=== PATIENT | female | born 1960 | race Caucasian/White ===

== ENCOUNTER 2016-11-10 18:14 | Inpatient (IN) ==
--- NOTE | 2016-11-10 18:48 | Emergency Department Report ---
Skin/Abscess/FB HPI - General Chief complaint: Skin/Abscess/Foreign Body Stated complaint: cellulitis Time Seen by Provider: 11/10/16 18:39 Source: patient Mode of arrival: ambulatory Limitations: no limitations - History of Present Illness HPI narrative: She had an episode of cellulitis on the left calf. Has history of cellulitis in this region. Was put on Doxycycline on 11/04/16 and this did clear up well. Over the weekend noted that the cellulitis was on the left thigh. Did see her PCP yesterday in clinic and was started on Bactrim DS and stopped the Doxycycline. She has had 3 doses so far. Today she followed up with her PCP and they felt that the redness had spread quite a bit. Was sent here to ER for evaluation and admission. Has not had a fever at all at home. complaint: other (cellulitis) Onset (ago): day(s) (4 days ago) Tetanus up to date: no Location: LLE (left thigh) Severity: moderate Consistency: constant Relieving factors: none Exacerbating factors: none Context: none Associated symptoms: denies other symptoms Treatments prior to arrival: none - Related Data Home Medications Medication Instructions Recorded Confirmed Atorvastatin Calcium 40 mg PO HS #0 tab 09/26/15 11/10/16 Hydrocodone/Acetaminophen 1 - 2 tab PO Q6H PRN #90 09/26/15 11/10/16 [Hydrocodon-Acetaminophen 5-325] Levothyroxine Sodium 112 mcg PO ACB #90 09/26/15 11/10/16 Losartan/Hydrochlorothiazide 1 tab PO DAILY #90 09/26/15 11/10/16 [Losartan-Hctz 100-25 mg Tab] Multivit-Minerals/Folic/Ginkgo 1 tab PO DAILY #1 09/26/15 11/10/16 [One Daily For Women 50+ Adv Tb] Omeprazole 20 mg PO BID PRN #120 09/26/15 11/10/16 Potassium Chloride 20 mg PO BID #90 09/26/15 11/10/16 Sitagliptin Phosphate [Januvia] 100 mg PO HS #90 09/26/15 11/10/16 Venlafaxine HCl [Venlafaxine HCl 150 mg PO DAILY #90 09/26/15 11/10/16 ER] Aspirin/Acetaminophen/Caffeine 1 tab PO Q6H PRN 11/10/16 11/10/16 [Headache Relief Tablet] Clobetasol 0.05% Cream [TEMOVATE 1 applic TOP BID 11/10/16 11/10/16 Cream] Melatonin/Pyridoxine HCl (B6) 5 mg PO HS 11/10/16 11/10/16 [Melatonin 5 mg Tablet] Naproxen Sodium [Aleve] 220 mg PO BID PRN 11/10/16 11/10/16 Ondansetron HCl [Zofran] 4 mg PO Q6H PRN 11/10/16 11/10/16 Pregabalin Cap [Lyrica] 150 mg PO DAILY 11/10/16 11/10/16 Sulfamethox/Tmp Ds *Ed Prepack 1 tab PO Q12H 11/10/16 11/10/16 [Bactrim Ds 800/160 *Ed Prepack*] Vit A/C/E AC/Znox/Cupric Oxide 1 tab PO DAILY 11/10/16 11/10/16 [Eye Vitamin-Minerals Tablet] Allergies Allergy/AdvReac Type Severity Reaction Status Date / Time metformin Allergy Unknown ITCHING Verified 11/10/16 19:15 Penicillins Allergy Unknown HIVES Verified 11/10/16 19:15 Review of Systems Constitutional: Denies: fever, chills, weakness Cardiovascular: Denies: chest pain, palpitations, dyspnea on exertion Respiratory: Denies: cough, dyspnea, wheezes Gastrointestinal: Denies: abdominal pain, nausea, vomiting, diarrhea, constipation Integumentary: Reports: other (erythema and induration on the left lateral thigh ) Neurological: Denies: headache, weakness, numbness, paresthesias PFS Patient Stated Medical History Peripheral Neuropathy Yes Hypertension Yes Sleep Apnea Yes Diabetes Mellitus Type 2 Yes Osteoarthritis Yes Cellulitis Yes Depression Yes Polycystic Ovarian Syndrome Yes Lower extremity cellulitis Surgical History: Hysterectomy. Tonsillectomy Family History: Negative - Social History Smoking status: Never smoker Substance use type: does not use Alcohol intake frequency: does not drink Physical Exam - Limitations Limitations: no limitations - General General appearance: alert, in no apparent distress - Normal Exams: Neck:: Full range of motion, without adenopathy, JVD, bruits or thyromegaly Chest/Respirations:: Clear all galdamez, with good airflow, and symmetry bilaterally Cardiovascular:: Regular rate and rhythm, without murmur or gallop, Pulses 2+ all extremities, capillary refill, <2 seconds all extremities Abdomen:: Bowel sounds positive, soft, non-tender, non-distended, no hepatosplenomegaly, masses or bruits noted Lymphatic:: No lymphadenopathy, or lymphedema noted Musculoskeletal:: No tenderness, or deformity noted, good range of motion, all extremities Neurological:: Patient is alert, and oriented Psychiatric:: Patient exhibits, appropriate attention, emotion and affect - Skin Skin exam: Present: other (There is an area on the left lateral thigh that is erythematous and indurated. The erythema extends up the left hip and across the left buttocks) Course Vital Signs Temperature 98.1 F 11/10/16 18:32 Pulse Rate 75 11/10/16 18:32 Respiratory Rate 20 11/10/16 18:32 Blood Pressure 141/67 H 11/10/16 18:32 Pulse Oximetry 98 11/10/16 18:32 Temperature 98.2 F 11/10/16 21:36 Pulse Rate 75 11/10/16 22:22 Respiratory Rate 20 11/10/16 22:22 Blood Pressure 142/82 H 11/10/16 21:45 Pulse Oximetry 98 11/10/16 22:22 Skin/Abscess/Foreign Body - MDM Narrative Medical decision making narrative: Labs today are normal. Given that the cellulitis is spreading on the PO medication will admit for IV antibiotics. Did discuss findings with Dr Amezquita who will admit at this time. - Differential Diagnosis Likely: abscess of skin or subcutaneous tissue, allergic reaction to drug, cellulitis, contact dermatitis - Lab Data Attestation: I reviewed the patient's lab results. Result diagrams: 11/10/16 19:01 11/10/16 19:01 Lab Results 11/10/16 11/10/16 Range/Units 19:01 19:01 WBC 9.2 (4.5-11.0) T/MM3 RBC 4.30 (4.00-5.20) M/MM3 Hgb 11.2 L (12-16) GM/DL Hct 34.4 L (36-46) % MCV 80.0 (80-100) UM3 MCH 26.0 (26-34) UUG MCHC 32.6 (31-37) GM/DL RDW Std Deviation 44.1 (36.9-50.2) FL Plt Count 240 (130-400) T/MM3 MPV 11.1 (9.4-12.4) UM3 Immature Gran % (Auto) 2.3 H (0.0-0.5) % Neut % (Auto) 73.2 H (33-66) % Lymph % (Auto) 14.9 L (23-45) % Wilkinson % (Auto) 6.9 (0-9.0) % Eos % (Auto) 2.3 (0-4) % Baso % (Auto) 0.4 (0-2) % Neut # 6.7 (1.8-7.7) T/MM3 Lymph # 1.4 (1-4.8) T/MM3 Wilkinson # 0.6 (0-0.8) T/MM3 Eos # 0.2 (0-0.5) T/MM3 Baso # 0.0 (0-0.2) T/MM3 Abs Immat Gran (auto) 0.21 H (0.00-0.03) T/MM3 Turbidity < 20 (0-20) Sodium 143 (134-144) MEQ/L Potassium 3.7 (3.6-5) MEQ/L Chloride 100 (98-107) MEQ/L Carbon Dioxide 28 (22-30) MEQ/L Anion Gap 15 (5-15) MEQ/L BUN 13.0 (7-17) MG/DL Creatinine 1.2 (0.7-1.2) MG/DL GFR Calculation 46 BUN/Creatinine Ratio 11 (6-26) RATIO Glucose 214 H (65-110) MG/DL Calculated Osmolality 281 H (261-280) MOSM/KG Calcium 8.8 (8.4-10.2) MG/DL Icterus Index < 2 (0-7) Specimen Hemolysis < 15 (0-25) Disposition Clinical Impression: Cellulitis Qualifiers: Site of cellulitis: extremity Site of cellulitis of extremity: lower extremity Laterality: left Qualified Code(s): L03.116 - Cellulitis of left lower limb Disposition: To [facility] Acute Care Condition: Stable Time of Disposition: 20:14 - Seen By: midlevel
[2016-11-10] MEDS ORDERED: KETOROLAC 15 MG/ML INJECTION IVP PRN (21:37)
[2016-11-10] MEDS ORDERED: GLUCOSE ORAL GEL 40% 37.5gm PO PRN (21:41)
[2016-11-10] MEDS ORDERED: ONDANSETRON 4 MG/2 ML INJECTION IVP PRN (21:48)
[2016-11-10] MEDS ORDERED: OXYCODONE/APAP 5 MG/325 MG TABLET PO PRN (21:48)
[2016-11-10] MEDS ORDERED: NS FLUSH BAG 500ml IV PRN (23:20)
[2016-11-10] MEDS ORDERED: NAPROXEN 220 MG TABLET PO PRN (23:22)
[2016-11-10] MEDS: LEVOFLOXACIN PREMIX 750 MG/150 ML BAG IV SCH (23:22)
--- NOTE | 2016-11-10 23:31 | History & Physical Report ---
History of Present Illness Date: 11/10/16 Chief complaint: leg redness and pain HPI: Please note that the patient was seen via telemedicine with nursing assistance on 11/10/2016. Ms. German is a pleasant 55yo woman with h/o DM2 on januvia, HTN, dyslpidemia, hyst, T&A, MDD, HARDEEP, and class 3 obesity BMI over60 with 1 week of leg redness at lower thigh which has worsened. Doxy started 11/04 and then PCP change to bactrim yesterday. Still progressive erythema and warmth throughout thight now with no drainage. positive fevers and chills with nausea and emesis. Review of Systems All systems: reviewed and no additional remarkable complaints except as stated Review of systems: 10+ neg aside from in HPI with no syncope, CP, abd pain, anorexia or sob. - Integumentary/Breasts Integumentary: Present: other (erythema and induration on the left lateral thigh ) PFSH Patient Stated Medical History Migraine Yes Peripheral Neuropathy Yes Hypertension Yes Sleep Apnea Yes Diabetes Mellitus Type 2 Yes Osteoarthritis Yes Cellulitis Yes: THIS ADMITION Depression Yes Polycystic Ovarian Syndrome Yes Surgical History: Hysterectomy. Tonsillectomy Family History: father of a CVA at 39, mother aliver with HTN - Social History Smoking status: Never smoker Medications Home Medications Medication Instructions Recorded Confirmed Type Atorvastatin Calcium 40 mg PO HS #0 tab 09/26/15 11/10/16 History Hydrocodone/Acetaminophen 1 - 2 tab PO Q6H PRN #90 09/26/15 11/10/16 History [Hydrocodon-Acetaminophen 5-325] Levothyroxine Sodium 112 mcg PO ACB #90 09/26/15 11/10/16 History Losartan/Hydrochlorothiazide 1 tab PO DAILY #90 09/26/15 11/10/16 History [Losartan-Hctz 100-25 mg Tab] Multivit-Minerals/Folic/Ginkgo 1 tab PO DAILY #1 09/26/15 11/10/16 History [One Daily For Women 50+ Adv Tb] Omeprazole 20 mg PO BID PRN #120 09/26/15 11/10/16 History Potassium Chloride 20 mg PO BID #90 09/26/15 11/10/16 History Sitagliptin Phosphate [Januvia] 100 mg PO HS #90 09/26/15 11/10/16 History Venlafaxine HCl [Venlafaxine HCl 150 mg PO DAILY #90 09/26/15 11/10/16 History ER] Aspirin/Acetaminophen/Caffeine 1 tab PO Q6H PRN 11/10/16 11/10/16 History [Headache Relief Tablet] Clobetasol 0.05% Cream [TEMOVATE 1 applic TOP BID 11/10/16 11/10/16 History Cream] Melatonin/Pyridoxine HCl (B6) 5 mg PO HS 11/10/16 11/10/16 History [Melatonin 5 mg Tablet] Naproxen Sodium [Aleve] 220 mg PO BID PRN 11/10/16 11/10/16 History Ondansetron HCl [Zofran] 4 mg PO Q6H PRN 11/10/16 11/10/16 History Pregabalin Cap [Lyrica] 150 mg PO DAILY 11/10/16 11/10/16 History Sulfamethox/Tmp Ds *Ed Prepack 1 tab PO Q12H 11/10/16 11/10/16 History [Bactrim Ds 800/160 *Ed Prepack*] Vit A/C/E AC/Znox/Cupric Oxide 1 tab PO DAILY 11/10/16 11/10/16 History [Eye Vitamin-Minerals Tablet] Allergies Allergy/AdvReac Type Severity Reaction Status Date / Time metformin Allergy Unknown ITCHING Verified 11/10/16 19:15 Penicillins Allergy Unknown HIVES Verified 11/10/16 19:15 Exam Vital Signs: Temp Pulse Resp BP Pulse Ox 98.2 F 75 20 142/82 H 98 11/10/16 21:36 11/10/16 22:22 11/10/16 22:22 11/10/16 21:45 11/10/16 22:22 Telemetry Rhythm: Sinus Rhythm Height: 1.7 m Weight: 188.2 kg Body Mass Index: 65.0 - Constitutional Present: no acute distress, morbidly obese - Routine HEENT Exam Head: Present: normocephalic, atraumatic Eye: Present: EOMI - Routine Neck Exam Present: full ROM - Routine Respiratory Exam Present: CTA bilaterally. Absent: accessory muscle use, respiratory distress - Routine Cardiovascular Exam Present: RRR, S1, S2 - Routine Abdominal Exam Present: soft, normoactive bowel sounds, non tender - Routine Extremities Exam Present: edema - Routine Skin Exam Comments: L thigh with bright erythema of thigh more lateral and too buttock spanning over 30cm with to knee, no ulceration Results - Labs CBC & Chem 7: 11/10/16 19:01 11/10/16 19:01 Assessment and Plan (1) Cellulitis Current visit: Yes Status: Acute 11/10/16 23:34 Vanco and levaquin based on allergies, repeat labs, monitor with normal naproxen (2) DM2 (diabetes mellitus, type 2) Current visit: Yes Status: Acute 11/10/16 23:34 SSI, CBGs, check A1C and hold januvia (3) HTN (hypertension) Current visit: Yes Status: Acute 11/10/16 23:35 same lisin/hctz (4) Dyslipidemia Current visit: Yes Status: Acute 11/10/16 23:35 statin (5) Obesity Current visit: Yes Status: Acute (6) HARDEEP (obstructive sleep apnea) Current visit: Yes Status: Acute 11/10/16 23:35 home CPAp DVT Prophylaxis: [place] Hospital Course Summary Disclaimer: The visit summary below is not to be considered part of the above Progress Note.
[2016-11-11] MEDS: ATORVASTATIN 40 MG TABLET PO SCH ×2 (00:23→21:48)
[2016-11-11] MEDS: HYDROCODONE/APAP 5mg/325mg TABLET PO PRN ×3 (02:57→21:50)
[2016-11-11] MEDS: LEVOTHYROXINE 112 MCG TABLET PO SCH (06:29)
[2016-11-11] MEDS: INSULIN ASPART 100unit/ml INJECTION SQ PRN ×4 (07:25→21:47)
[2016-11-11] MEDS: NAPROXEN 220 MG TABLET PO SCH ×2 (08:34→17:25)
[2016-11-11] MEDS: VENLAFAXINE 150 MG PO SCH (08:36)
[2016-11-11] MEDS: PREGABALIN 150 MG CAPSULE PO SCH (08:36)
[2016-11-11] MEDS: CLOBETASOL 0.05% CREAM 15gm TOP SCH ×2 (08:36→21:49)
[2016-11-11] MEDS ORDERED: ENOXAPARIN 40 MG/0.4 ML INJECTION SQ SCH (09:00)
--- NOTE | 2016-11-11 09:59 | Pharmacy Consult-Antibiotics ---
Pharmacy Consult-Vancomycin - Laboratory Information WBC 7.7 T/MM3 (4.5-11.0) 11/11/16 04:29 BUN 12.0 MG/DL (7-17) 11/11/16 04:29 Creatinine 1.2 MG/DL (0.7-1.2) 11/11/16 04:29 Kely is a 55 yo female who presented with erythema and warmth throughout right thigh (no ulceration). Patient report positive fevers and chills. The physician admitted her for cellulitis. Will dose for a trough of 15-20 mcg/mL with an estimated trough of 15.5 mcg/mL. A dose of Vancomycin 2,000 mg iv was given 11/10 @ 2100. I will start Vancomycin iv every 24 hours @1200 today (11/11 ). I will ordered a Vancomycin trough to be drawn before the fourth dose on @ 1100, and the pharmacy will adjust the Vancomycin based on trough and/or the renal function. Thank you for the Vancomycin Protocol. Segundo Ledezma RP
--- NOTE | 2016-11-11 12:35 | Progress Note ---
Subjective: Pt reports doing better this am. Reports her pain and rash seems to be improved this am. Denies any f/c, cp or sob. Objective Vital signs: Temp Pulse Resp BP Pulse Ox 98.0 F 76 20 154/105 H 98 11/11/16 07:28 11/11/16 11:14 11/11/16 07:28 11/11/16 11:14 11/11/16 07:28 Weight: 187.5 kg - Constitutional Present: no acute distress, morbidly obese - Routine HEENT Exam Head: Present: normocephalic Eye: Present: EOMI ENT: Present: mucous membranes moist - Routine Respiratory Exam Present: CTA bilaterally. Absent: wheezes - Routine Cardiovascular Exam Present: RRR, no murmur - Routine Abdominal Exam Present: soft, non distended, non tender - Routine Extremities Exam Present: edema. Absent: cyanosis, clubbing - Routine Skin Exam Present: intact, dry, warm, rash Comments: left buttocks has erythematous rash extended into thigh, no discharge - Routine Neurological Exam Present: alert, oriented X3 Results - Labs CBC & Chem 7: 11/11/16 04:29 11/11/16 04:29 Assessment and Plan (1) Cellulitis Current visit: Yes Status: Acute 11/10/16 23:34 Vanco and levaquin based on allergies, repeat labs, monitor with normal naproxen (2) DM2 (diabetes mellitus, type 2) Current visit: Yes Status: Acute 11/10/16 23:34 SSI, CBGs, check A1C and hold januvia (3) HTN (hypertension) Current visit: Yes Status: Acute 11/10/16 23:35 same lisin/hctz (4) Dyslipidemia Current visit: Yes Status: Acute 11/10/16 23:35 statin (5) Obesity Current visit: Yes Status: Acute (6) HARDEEP (obstructive sleep apnea) Current visit: Yes Status: Acute 11/10/16 23:35 home CPAp Assessment and Plan: Cellulitis -Failed outpt therapy with doxy and bactrim -Seems to have improved on Vanc + Levaquin, will cont. -On levaquin d/t allergies per night team -Blood cx's NGTD, order Crp/Esr, procal -Will jose angel outline of rash and follow -Likely increased risk d/t venous insufficiency edema DM -A1c 8.6 -Cont. home januvia, add SSI, achs checks HTN -Cont. home losartan/hctz Ppx -DVT-lovenox Sepsis Assessment - Evaluation Sepsis screening result: No Definite Risk Hospital Course Summary Disclaimer: The visit summary below is not to be considered part of the above Progress Note. Hospital Course: 11/11/16 12:35 Pt admitted for cellulitis and failed outpt PO therapy. Pt doing well on current abx therapy, will cont. and monitor.
[2016-11-11] MEDS: SALINE FLUSH 10ml SYRINGE IVF PRN ×2 (13:26→16:31)
[2016-11-11] MEDS: LEVOFLOXACIN PREMIX 750 MG/150 ML BAG IV SCH (21:46)
[2016-11-11] MEDS: ENOXAPARIN 40 MG/0.4 ML INJECTION SQ SCH (21:47)
[2016-11-11] MEDS: MELATONIN 5 MG TABLET PO SCH (21:49)
[2016-11-11] MEDS: SITAGLIPTIN 100 MG TABLET PO SCH (21:59)
[2016-11-12] MEDS: LEVOTHYROXINE 112 MCG TABLET PO SCH (06:22)
[2016-11-12] MEDS: NAPROXEN 220 MG TABLET PO SCH ×2 (09:08→19:19)
[2016-11-12] MEDS: CLOBETASOL 0.05% CREAM 15gm TOP SCH ×2 (09:09→21:04)
[2016-11-12] MEDS: PREGABALIN 150 MG CAPSULE PO SCH (09:09)
[2016-11-12] MEDS: VENLAFAXINE 150 MG PO SCH (09:09)
[2016-11-12] MEDS ORDERED: MAGNESIUM SULFATE IV ONE (10:34)
[2016-11-12] MEDS ORDERED: NS IV ONE (10:34)
[2016-11-12] MEDS: SALINE FLUSH 10ml SYRINGE IVF PRN (11:39)
[2016-11-12] MEDS: HYDROCODONE/APAP 5mg/325mg TABLET PO PRN ×2 (11:53→21:05)
[2016-11-12] MEDS: MAGNESIUM SULFATE IV SCH ×2 (11:54→15:39)
[2016-11-12] MEDS: NS IV SCH ×2 (11:54→15:39)
[2016-11-12] MEDS: INSULIN ASPART 100unit/ml INJECTION SQ PRN ×3 (11:59→21:05)
--- NOTE | 2016-11-12 12:48 | Progress Note ---
Subjective: Pt reports she feels better and feels like rash is improving, denies any f/c, n/ v/d, cp or sob. Objective Vital signs: Temp Pulse Resp BP Pulse Ox 96.3 F L 68 18 125/53 98 11/12/16 07:00 11/12/16 07:00 11/12/16 07:00 11/12/16 07:00 11/12/16 07:00 Weight: 188.1 kg - Constitutional Present: no acute distress, morbidly obese - Routine HEENT Exam Head: Present: normocephalic, atraumatic Eye: Present: EOMI - Routine Respiratory Exam Present: CTA bilaterally. Absent: wheezes - Routine Cardiovascular Exam Present: RRR, no murmur - Routine Abdominal Exam Present: soft, non tender - Routine Extremities Exam Present: edema. Absent: cyanosis, clubbing - Routine Skin Exam Present: intact, dry, rash - Routine Neurological Exam Present: oriented X3 Results - Labs CBC & Chem 7: 11/12/16 04:48 11/12/16 04:48 Assessment and Plan (1) Cellulitis Current visit: Yes Status: Acute 11/10/16 23:34 Vanco and levaquin based on allergies, repeat labs, monitor with normal naproxen (2) DM2 (diabetes mellitus, type 2) Current visit: Yes Status: Acute 11/10/16 23:34 SSI, CBGs, check A1C and hold januvia (3) HTN (hypertension) Current visit: Yes Status: Acute 11/10/16 23:35 same lisin/hctz (4) Dyslipidemia Current visit: Yes Status: Acute 11/10/16 23:35 statin (5) Obesity Current visit: Yes Status: Acute (6) HARDEEP (obstructive sleep apnea) Current visit: Yes Status: Acute 11/10/16 23:35 home CPAp Assessment and Plan: Cellulitis of left leg -Failed outpt therapy with doxy and bactrim -Seems to have improved on Vanc D2 + Levaquin D2 will cont. -On levaquin d/t allergies per night team -Blood cx's NGTD, CRP 57, Procal negative -Rash is improving per the marked border around it -Likely increased risk d/t venous insufficiency edema -Will cont. IV abx today and plan for PO tomorrow -Going to be difficult to switch to PO from vanc, pt already failed bactrim and doxy, maybe clinda? vs. finishing vanc therapy DM -A1c 8.6 -Cont. home januvia, add SSI, achs checks HTN -Cont. home losartan/hctz Ppx -DVT-lovenox Sepsis Assessment - Evaluation Sepsis screening result: No Definite Risk Hospital Course Summary Disclaimer: The visit summary below is not to be considered part of the above Progress Note. Hospital Course: 11/11/16 12:35 Pt admitted for cellulitis and failed outpt PO therapy. Pt doing well on current abx therapy, will cont. and monitor. 11/12/16 12:48 Pt is improving on current abx, will cont. IV abx today with plan for switch to PO tomorrow and possibly discharge.
--- NOTE | 2016-11-12 14:05 | Pharmacy Consult-Antibiotics ---
Pharmacy Consult-Vancomycin - Laboratory Information WBC 6.0 T/MM3 (4.5-11.0) 11/12/16 04:48 BUN 14.0 MG/DL (7-17) 11/12/16 04:48 Creatinine 1.2 MG/DL (0.7-1.2) 11/12/16 04:48 Procalcitonin < 0.05 NG/ML 11/11/16 14:16 - Consult Information Vancomycin increased to 2 gm IV Q12h based on patient weight. Vancomycin trough ordered and adjustments will be made as needed. Thank you for the Vancomycin protocol, Dawna Medina [facility]
[2016-11-12] MEDS: LEVOFLOXACIN PREMIX 750 MG/150 ML BAG IV SCH (21:11)
[2016-11-12] MEDS: MELATONIN 5 MG TABLET PO SCH (21:18)
[2016-11-12] MEDS: SITAGLIPTIN 100 MG TABLET PO SCH (21:19)
[2016-11-12] MEDS: ATORVASTATIN 40 MG TABLET PO SCH (21:19)
[2016-11-12] MEDS: ENOXAPARIN 40 MG/0.4 ML INJECTION SQ SCH (21:19)
[2016-11-13] MEDS: MAGNESIUM SULFATE IV SCH (01:21)
[2016-11-13] MEDS: NS IV SCH (01:21)
[2016-11-13] MEDS: SALINE FLUSH 10ml SYRINGE IVF PRN ×4 (01:22→21:00)
[2016-11-13] MEDS: INSULIN ASPART 100unit/ml INJECTION SQ PRN ×4 (06:04→20:59)
[2016-11-13] MEDS: LEVOTHYROXINE 112 MCG TABLET PO SCH (06:05)
[2016-11-13] MEDS: NAPROXEN 220 MG TABLET PO SCH ×2 (08:55→17:22)
[2016-11-13] MEDS: VENLAFAXINE 150 MG PO SCH (08:55)
[2016-11-13] MEDS: PREGABALIN 150 MG CAPSULE PO SCH (08:56)
[2016-11-13] MEDS: CLOBETASOL 0.05% CREAM 15gm TOP SCH (08:56)
--- NOTE | 2016-11-13 17:49 | Progress Note ---
Subjective: Mrs. German reports that she feels fine. She denies pain in her left thigh and had no fever overnight. She had minor nausea on admission but it's resolved and her appetite is good. Bowels are working without difficulty and she is voiding regularly without dysuria. She denied dyspnea or lightheadedness. Objective Vital signs: Temp Pulse Resp BP Pulse Ox 96.8 F 74 18 133/61 96 11/13/16 15:11 11/13/16 15:11 11/13/16 15:11 11/13/16 15:11 11/13/16 15:11 EXAM General-morbidly obese, NAD, alert HEENT-conjunctiva clear, sclera anicteric, oropharynx clear Lungs-respirations nonlabored, breath sounds clear although diminished throughout Cardiac-regular rhythm, S1-S2 Abd-soft, nontender, bowel sounds present Ext-trace edema bilateral ankles Skin-residual faint erythema in the left lateral thigh in the area previously outlined although beginning to resolve at the periphery, there is central induration. The area is not tender or hot on palpation. Scattered areas are flaking slightly but not ulcerated or desquamating. Neuro-moving all extremities Psych-calm, pleasant, cooperative - Weight: 188.6 kg Results - Labs CBC & Chem 7: 11/12/16 04:48 11/13/16 05:04 Labs: Magnesium 1.6 Blood cultures 2 negative after 2 days Assessment and Plan (1) Cellulitis Current visit: Yes Status: Acute (2) DM2 (diabetes mellitus, type 2) Current visit: Yes Status: Acute (3) HTN (hypertension) Current visit: Yes Status: Acute (4) Dyslipidemia Current visit: Yes Status: Acute 11/10/16 23:35 statin (5) HARDEEP (obstructive sleep apnea) Current visit: Yes Status: Chronic 11/10/16 23:35 home CPAp (6) Morbid obesity Current visit: Yes Status: Chronic (7) Hypomagnesemia Current visit: Yes Status: Acute 11/13/16 17:57 Suspect chronic due to hydrochlorothiazide use (8) CKD (chronic kidney disease) stage 3, GFR 30-59 ml/min Current visit: Yes Status: Chronic Assessment and Plan: Cellulitis of left leg -Failed outpt therapy with doxy and bactrim -Seems to have improved on Vanc D3 + Levaquin D3 will cont.-convert to oral clindamycin/Levaquin -Blood cx's NGTD, CRP 57, Procal negative -Rash is improving per the marked border around it -Likely increased risk d/t venous insufficiency edema DM -A1c 8.7 -Cont. home januvia, add SSI, achs checks -Probable nephropathy, check UA for proteinuria. GFR 46 HTN -Cont. home losartan/hctz Hypomagnesemia -Replaced IV 11/12, oral supplementation initiated 11/13 Ppx -DVT-lovenox Sepsis Assessment - Evaluation Sepsis screening result: No Definite Risk Hospital Course Summary Disclaimer: The visit summary below is not to be considered part of the above Progress Note. Hospital Course: 11/11/16 12:35 Pt admitted for cellulitis and failed outpt PO therapy. Pt doing well on current abx therapy, will cont. and monitor. 11/12/16 12:48 Pt is improving on current abx, will cont. IV abx today with plan for switch to PO tomorrow. 11/13/16 17:55 Clinically stable, convert to oral antibiotics-reassess in a.m. since failed oral antibiotics previously. If stable and tolerating oral antibiotics anticipate discharge tomorrow.
[2016-11-13] MEDS: ENOXAPARIN 40 MG/0.4 ML INJECTION SQ SCH (21:00)
[2016-11-13] MEDS: CLINDAMYCIN 150 MG CAPSULE PO SCH (21:00)
[2016-11-13] MEDS: MELATONIN 5 MG TABLET PO SCH (21:01)
[2016-11-13] MEDS: ATORVASTATIN 40 MG TABLET PO SCH (21:02)
[2016-11-13] MEDS: MAGNESIUM OXIDE 400 MG TABLET PO SCH (21:02)
[2016-11-13] MEDS: HYDROCODONE/APAP 5mg/325mg TABLET PO PRN (21:02)
[2016-11-13] MEDS: SITAGLIPTIN 100 MG TABLET PO SCH (21:02)
[2016-11-13] MEDS: OMEPRAZOLE 20 MG CAPSULE PO PRN (21:11)
[2016-11-13] MEDS ORDERED: LEVOFLOXACIN 750 MG TABLET PO SCH (22:00)
[2016-11-14] MEDS: LEVOTHYROXINE 112 MCG TABLET PO SCH (06:33)
[2016-11-14] MEDS: INSULIN ASPART 100unit/ml INJECTION SQ PRN ×2 (06:34→11:41)
[2016-11-14] MEDS: VENLAFAXINE 150 MG PO SCH (08:31)
[2016-11-14] MEDS: PREGABALIN 150 MG CAPSULE PO SCH (08:31)
[2016-11-14] MEDS: NAPROXEN 220 MG TABLET PO SCH (08:31)
[2016-11-14] MEDS: CLINDAMYCIN 150 MG CAPSULE PO SCH ×2 (08:31→13:02)
[2016-11-14] MEDS: MAGNESIUM OXIDE 400 MG TABLET PO SCH (08:32)
[2016-11-14] MEDS: MAGNESIUM SULFATE 1gm PREMIX 1 GM/100 ML BAG IV SCH ×2 (11:42→13:02)
[2016-11-14] MEDS: OMEPRAZOLE 20 MG CAPSULE PO PRN (13:29)
--- NOTE | 2016-11-14 14:01 | Discharge Summary ---
Discharge Plan - Med Rec/Dispo Referrals/Follow Up: Kristi Bejarano MD [Primary Care Provider] - (4-5 days) [place] Instructions: Cellulitis (DC), Clindamycin (On the skin) Prescriptions: New Magnesium Oxide [Magox] 400 mg PO DAILY #30 Clindamycin [Cleocin] 300 mg PO QID #72 cap Levofloxacin [Levaquin] 750 mg PO Q24H #5 Continue Sitagliptin Phosphate [Januvia] 100 mg PO HS #90 Losartan/Hydrochlorothiazide [Losartan-Hctz 100-25 mg Tab] 1 tab PO DAILY # 90 Venlafaxine HCl [Venlafaxine HCl ER] 150 mg PO DAILY #90 Atorvastatin Calcium 40 mg PO HS #0 tab Pregabalin Cap [Lyrica] 150 mg PO DAILY Vit A/C/E AC/Znox/Cupric Oxide [Eye Vitamin-Minerals Tablet] 1 tab PO DAILY Clobetasol 0.05% Cream [TEMOVATE Cream] 1 applic TOP BID Melatonin/Pyridoxine HCl (B6) [Melatonin 5 mg Tablet] 5 mg PO HS Ondansetron HCl [Zofran] 4 mg PO Q6H PRN PRN Reason: Nausea Omeprazole 20 mg PO BID PRN #120 PRN Reason: Acid Reflux Levothyroxine Sodium 112 mcg PO ACB #90 Multivit-Minerals/Folic/Ginkgo [One Daily For Women 50+ Adv Tb] 1 tab PO DAILY #1 Aspirin/Acetaminophen/Caffeine [Headache Relief Tablet] 1 tab PO Q6H PRN PRN Reason: Pain Naproxen Sodium [Aleve] 220 mg PO BID PRN PRN Reason: Pain Discontinued Potassium Chloride 20 mg PO BID #90 Sulfamethox/Tmp Ds *Ed Prepack [Bactrim Ds 800/160 *Ed Prepack*] 1 tab PO Q12H No Action Hydrocodone/Acetaminophen [Hydrocodon-Acetaminophen 5-325] 1 - 2 tab PO Q6H PRN #90 PRN Reason: Pain Discharge Instructions/Outpatient Orders: Final Provider Discharge Instructions Time Frame: 5 Days, Location: Determined By Patient - Disposition 01 Discharged Home, Self-Care
--- NOTE | 2016-11-14 14:18 | Discharge Summary ---
Discharge Information Date of admission: 11/10/16 20:37 Anticipated date of discharge: 11/14/16 Attending Physician: Claudine Mart MD Primary care physician: Kristi Bejarano MD - Discharge Diagnosis (1) Cellulitis Qualifiers: Site of cellulitis: extremity Site of cellulitis of extremity: lower extremity Laterality: left Qualified Code(s): L03.116 - Cellulitis of left lower limb Status: Acute (2) DM2 (diabetes mellitus, type 2) Qualifiers: Diabetes mellitus complication status: with kidney complications Diabetes mellitus complication detail: with chronic kidney disease Chronic kidney disease stage: stage 3 (moderate) Status: Chronic (3) HTN (hypertension) Qualifiers: Hypertension type: essential hypertension Qualified Code(s): I10 - Essential (primary) hypertension Status: Chronic (4) Dyslipidemia Status: Acute (5) HARDEEP (obstructive sleep apnea) Status: Chronic (6) Morbid obesity Status: Chronic (7) Hypomagnesemia Status: Acute (8) CKD (chronic kidney disease) stage 3, GFR 30-59 ml/min Status: Chronic - Laboratory Labs: 11/14/16 04:13 11/14/16 04:13 Magnesium 1.46/ and 11/14. CRP 57.7, ESR 60 on 11/11 A1c 8.7 on 11/11/16 - Microbiology Blood cultures 2 drawn 11/10/16 negative at discharge History of Present Illness HPI: Please note that the patient was seen via telemedicine with nursing assistance on 11/10/2016. Ms. German is a pleasant 55yo woman with h/o DM2 on , HTN, dyslpidemia, hyst, T&A, MDD, HARDEEP, and class 3 obesity BMI over60 with 1 week of leg redness at lower thigh which has worsened. Doxy started 11/04 and then PCP change to bactrim yesterday. Still progressive erythema and warmth throughout thight now with no drainage. positive fevers and chills with nausea and emesis. Hospital Course Hospital course: Mrs. German was hospitalized on 11/10 after failing outpatient therapy for cellulitis involving the proximal left lateral thigh. She previously been treated with both doxycycline and Bactrim but had persistent erythema over the thigh with development of fever, chills, and nausea with emesis. Procalcitonin was undetectable on admission but inflammatory markers elevated as noted previously. The patient was switched from oral antibiotics to Levaquin and vancomycin empirically. There was clinical improvement over subsequent days with fading of erythema and resolution of fever and chilling. The area marked on her left thigh remained indurated throughout the hospitalization but tenderness subsided and degree of discoloration improved although did not fully resolve. Leukocytosis was not seen throughout the hospitalization nor was fever. It was elected to convert to oral Levaquin and oral clindamycin on 11/13. Patient tolerated oral antibiotics well and there was no indication of worsening of the cellulitic area on 11/14 and subsequently patient was felt stable for discharge. On 11/14 patient reported that she felt fine other than some heartburn at which time it was noted that omeprazole had been entered when necessary rather than scheduled as she typically takes it at home. Patient denied pain or dyspnea. Examination of the left thigh demonstrated mild erythema and induration in the previously marked distribution without ulceration. There is some superficial desquamation of the epidermis in the inferior area of the cellulitis. 2 g of IV magnesium sulfate were supplemented prior to discharge for recurrent hypomagnesemia; potassium was slightly higher at 5.1 without evidence of hemolysis. Potassium chloride will remain on hold at this time and oral magnesium oxide continued at discharge. The patient is asked to follow-up with Dr. Bejarano later this week for reassessment of her left thigh and for reassessment of electrolytes. A1c is moderately elevated and will require reassessment of diabetes management in the office. Other than holding potassium and discontinuation of prior outpatient antibiotic remainder of home medications are resumed. Patient will continue clindamycin for an additional 9 days of therapy to complete 10 days of clindamycin and will continue Levaquin for an additional 5 days for total of 10 days of Levaquin. >30 minutes spent on patient care and discharge care coordination today on the date of discharge. -- Discharge Plan - Med Rec/Dispo Referrals/Follow Up: Kristi Bejarano MD [Primary Care Provider] - (4-5 days) [place] Instructions: Clindamycin (On the skin), Cellulitis (DC) Prescriptions: New Magnesium Oxide [Magox] 400 mg PO DAILY #30 Clindamycin [Cleocin] 300 mg PO QID #72 cap Levofloxacin [Levaquin] 750 mg PO Q24H #5 Continue Sitagliptin Phosphate [Januvia] 100 mg PO HS #90 Losartan/Hydrochlorothiazide [Losartan-Hctz 100-25 mg Tab] 1 tab PO DAILY # 90 Venlafaxine HCl [Venlafaxine HCl ER] 150 mg PO DAILY #90 Atorvastatin Calcium 40 mg PO HS #0 tab Pregabalin Cap [Lyrica] 150 mg PO DAILY Vit A/C/E AC/Znox/Cupric Oxide [Eye Vitamin-Minerals Tablet] 1 tab PO DAILY Clobetasol 0.05% Cream [TEMOVATE Cream] 1 applic TOP BID Melatonin/Pyridoxine HCl (B6) [Melatonin 5 mg Tablet] 5 mg PO HS Ondansetron HCl [Zofran] 4 mg PO Q6H PRN PRN Reason: Nausea Omeprazole 20 mg PO BID PRN #120 PRN Reason: Acid Reflux Levothyroxine Sodium 112 mcg PO ACB #90 Multivit-Minerals/Folic/Ginkgo [One Daily For Women 50+ Adv Tb] 1 tab PO DAILY #1 Aspirin/Acetaminophen/Caffeine [Headache Relief Tablet] 1 tab PO Q6H PRN PRN Reason: Pain Naproxen Sodium [Aleve] 220 mg PO BID PRN PRN Reason: Pain Discontinued Potassium Chloride 20 mg PO BID #90 Sulfamethox/Tmp Ds *Ed Prepack [Bactrim Ds 800/160 *Ed Prepack*] 1 tab PO Q12H No Action Hydrocodone/Acetaminophen [Hydrocodon-Acetaminophen 5-325] 1 - 2 tab PO Q6H PRN #90 PRN Reason: Pain Discharge Instructions/Outpatient Orders: Final Provider Discharge Instructions Time Frame: 5 Days, Location: Determined By Patient - Disposition 01 Discharged Home, Self-Care
[2016-11-14] MEDS ORDERED: LEVOFLOXACIN 750 MG TABLET PO SCH (20:00)
== END 2016-11-14 15:10 | disposition home or self-care (01) | DRG 603 ==
LOC: ED 18:14 → MED 20:37
PROVIDERS: ADMIT Hospitalist; ATTEND Internal Medicine

== ENCOUNTER 2016-12-29 14:34 | Inpatient (IN) ==
[2016-12-29] MEDS ORDERED: ONDANSETRON 4 MG/2 ML INJECTION IVP PRN (14:45)
[2016-12-29] MEDS: HYDROCODONE/APAP 5mg/325mg TABLET PO PRN ×2 (16:33→22:41)
[2016-12-29] MEDS ORDERED: FALL RISK - PHARMACY CONSULT MC PRN (17:24)
[2016-12-29] MEDS: 1/2 NS with KCL 20mEq 1,000 ML IV SCH (17:27)
[2016-12-29] MEDS: MAGNESIUM SULFATE 1gm PREMIX 1 GM/100 ML BAG IV SCH ×2 (17:28→18:27)
--- NOTE | 2016-12-29 18:08 | History & Physical Report ---
<Saundra Bravo - Last Filed: 12/29/16 18:26> History of Present Illness Date: 12/29/16 Chief complaint: Fever HPI: Kely German is a 56 y/o woman who developed a fever of 101.2 in the evening of [which was last night]. She also started to have some wheezing and became winded with activity - while she has had problems with dyspnea on exertion in the past, she has not ever had wheezing. She had quite a bit of nasal drainage which made her nauseated and she started to dry heave. She notes an impressive frontal headache. She has felt weak and lightheaded and unsteady on her feet - she had to use her cane to ambulate last night. She woke up early this morning chilling, which is very unusual since typically she's hot. She complains of chronic knee and ankle pain, but denies any worsening recently. No joint swelling or warmth. Denies rashes or cellulitis, but does state that she has been developing blisters to both anterior shins for "years", mostly to her left. Denies abdominal pain, diarrhea, or constipation. No burning with urination or blood in urine. Denies recent vision changes. She notes some dental pain to her left lower jaw, but it is improving. She denies any recent travel. No known sick exposures. She has 2 dogs and 2 cats at home - all are up to date on vaccines. She was admitted this October for hip cellulitis, and her symptoms last night were very similar to when she was hospitalized then. She was seen in Dr. Bejarano's office, where labs were drawn. WBC was high at 20 and CRP was markedly elevated at 142.7. UA was negative for UTI. Dr. Solomon was contacted and Kely was directly admitted to observation status for further workup and treatment. Review of Systems Comprehensive ROS: completed and no additional positive findings except those as stated - Constitutional Constitutional: Present: anorexia, chills, fatigue, fever(s), headache(s) - EENMT Nose: Present: other (drainage) Mouth/Throat: Present: sore throat - Cardiovascular Vascular: Present: unilateral swelling (L>R) - Respiratory Respiratory: Present: dyspnea on exertion, wheezing - Gastrointestinal Gastrointestinal: Present: nausea, vomiting - Musculoskeletal Musculoskeletal: Present: back pain (lumbar - chronic), muscle weakness - Integumentary/Breasts Integumentary: Present: as per HPI - Neurological Neurological: Present: headache(s), weakness - Psychiatric Psychiatric: Present: abnormal sleep pattern - Endocrine Endocrine: Present: heat intolerance PFSH DM2 with peripheral neuropathy - hgb A1c 8.7% 11/11/16 HTN HLD HARDEEP OA Depression, anxiety PCOS, uterine cancer - resolved Migraine CKD stage 1 Morbid obesity Surgical History: Left CTR 09/21/15. Colonoscopy 12/13/13 - normal 10 year screen. Hysterectomy - total [place] [address] Marin. Tonsillectomy age 4 or 6 Family History: Father of a stroke (arterial laceration) at age 39. Mother still living, has HTN, HLD, CAD Sister - HTN, DM, hypothyroid. PGM - DM, HTN. of old age (around age 85). PGF - of stroke MGM - of uterine cancer, DM2. MGF - of stroke. - Social History Smoking status: Never smoker Substance use type: does not use Alcohol intake frequency: does not drink Household members: spouse, other (2 dogs; 2 cats - up to date on all vaccines) Current occupational status: disabled Social history: PCP - Dr. Bejarano Medications Home Medications Medication Instructions Recorded Confirmed Type Atorvastatin Calcium 40 mg PO HS #0 tab 09/26/15 12/29/16 History Hydrocodone/Acetaminophen 1 - 2 tab PO Q6H PRN #90 09/26/15 12/29/16 History [Hydrocodon-Acetaminophen 5-325] Levothyroxine Sodium 112 mcg PO ACB #90 09/26/15 12/29/16 History Losartan/Hydrochlorothiazide 1 tab PO DAILY #90 09/26/15 12/29/16 History [Losartan-Hctz 100-25 mg Tab] Multivit-Minerals/Folic/Ginkgo 1 tab PO DAILY #1 09/26/15 12/29/16 History [One Daily For Women 50+ Adv Tb] Omeprazole 20 mg PO BID PRN #120 09/26/15 12/29/16 History Sitagliptin Phosphate [Januvia] 100 mg PO HS #90 09/26/15 12/29/16 History Venlafaxine HCl [Venlafaxine HCl 150 mg PO DAILY #90 09/26/15 12/29/16 History ER] Aspirin/Acetaminophen/Caffeine 1 tab PO Q6H PRN 11/10/16 12/29/16 History [Headache Relief Tablet] Clobetasol 0.05% Cream [TEMOVATE 1 applic TOP 4XDPRN PRN 11/10/16 12/29/16 History Cream] Melatonin/Pyridoxine HCl (B6) 5 mg PO HS 11/10/16 12/29/16 History [Melatonin 5 mg Tablet] Naproxen Sodium [Aleve] 220 mg PO BID PRN 11/10/16 12/29/16 History Ondansetron HCl [Zofran] 4 mg PO Q6H PRN 11/10/16 12/29/16 History Pregabalin Cap [Lyrica] 150 mg PO DAILY 11/10/16 12/29/16 History Vit A/C/E AC/Znox/Cupric Oxide 1 tab PO DAILY 11/10/16 12/29/16 History [Eye Vitamin-Minerals Tablet] Glimepiride 1 mg PO DAILY 12/29/16 12/29/16 History Potassium Chloride ER Tab [K-Dur] 1 tab PO BID 12/29/16 12/29/16 History Allergies Allergy/AdvReac Type Severity Reaction Status Date / Time metformin Allergy Unknown ITCHING Verified 12/29/16 17:20 Penicillins Allergy Unknown HIVES Verified 12/29/16 17:20 Exam Vital Signs: Temperature 100.4 F 12/29/16 15:46 Pulse Rate 84 12/29/16 15:46 Respiratory Rate 20 12/29/16 15:46 Blood Pressure 145/69 H 12/29/16 15:46 Pulse Oximetry 99 12/29/16 15:46 Oxygen Delivery Method Room Air Height: 1.73 m Weight: 183.9 kg - Constitutional Present: no acute distress, well nourished, well developed, obese - Routine HEENT Exam Eye: Present: PERRL. Absent: conjunctival icterus, scleral injection ENT: Present: mucous membranes moist, oropharynx clear Comments: mild dental decay; no dental abscess; no trismus mild cobblestoning of posterior pharynx without pharyngeal edema - Routine Neck Exam Present: supple, lymphadenopathy (anterior cervical) - Routine Respiratory Exam Present: wheezes (intermittent wheezing, otherwise clear) - Routine Cardiovascular Exam Present: RRR, S1, S2 - Routine Abdominal Exam Present: soft, normoactive bowel sounds, non distended, non tender - Routine Extremities Exam Present: edema (B/L, R>L), pulses intact, normal capillary refill. Absent: calf tenderness - Routine Back/Spine/Pelvis Exam Back/Spine: Absent: CVA tenderness, vertebral tenderness - Routine Skin Exam Present: dry, warm, rash (erythema to RLE, from knee distally. There are scars that she reports are from blisters. There are multiple abrasions in various stages of healing, primarly to left lower leg.) - Routine Neurological Exam Present: alert, oriented X3, CN II-XII intact (grossly), moving all extremities , normal speech - Routine Psychiatric Exam Present: normal affect, normal thought process, cooperative, good insight, good judgment Results - Labs CBC & Chem 7: 12/29/16 15:20 Labs: Laboratory Tests 12/29/16 12:07 WBC 20.2 H Plt Count 137 12/29/16 12/29/16 15:20 15:20 Plasma Lactate 2.0 Procalcitonin 4.37 H* 12/29/16 12/29/16 15:05 15:20 Magnesium 0.9 L Total Bilirubin 2.10 H Microbiology Results: Microbiology 12/29/16 15:20 Peripheral/Iv Start Blood Culture - Preliminary Culture Initiated - Results Pending 12/29/16 15:20 Peripheral/Iv Start Blood Culture - Preliminary Culture Initiated - Results Pending - Imaging and Cardiology Chest x-ray Status: image reviewed by me (lung bases clear; no infiltrates/failure) Assessment and Plan (1) Severe sepsis Current visit: Yes Status: Acute (2) Cellulitis Current visit: Yes Status: Acute (3) Electrolyte abnormality Current visit: Yes Status: Acute (4) Hyperbilirubinemia Current visit: Yes Status: Acute DVT Prophylaxis: Lovenox GI Prophylaxis: other (Prilosec) Resuscitation Status: Full Code Assessment and Plan: Assessment Severe sepsis secondary to left lower extremity cellulitis. Electrolyte abnormalities: Hypokalemia and hypomagnesemia, present on admission. Hyperbilirubinemia, present on admission. DM2 with peripheral neuropathy - hgb A1c 8.7% 11/11/16 HTN HLD HARDEEP OA Depression, anxiety PCOS, uterine cancer -status post hysterectomy Migraine CKD stage 1 Morbid obesity. Plan Patient was initially admitted to observation status, however, given results of testing, will change admission to inpatient for ongoing assessment and treatment of severe sepsis secondary to cellulitis. Severe sepsis secondary to cellulitis --Scores/labs supporting sepsis -SIRS: Positive for leukocytosis, fever, and respiratory rate of 20 -qSOFA: 0/3 -Severe sepsis qualifiers: Lactate of 2.0; Total bilirubin of 2.1. -Procalcitonin of 4.37 suggests bacterial etiology. Additionally, CRP of 142.7 indicates inflammatory process (levels >50 suggest sepsis). -Repeat Lactate within 6 hours; repeat procalcitonin tomorrow am to help guide abx therapy. --Start Vancomycin per pharmacy protocol. --Obtain venous Doppler of left lower extremity to rule out DVT. Electrolyte abnormalities --Hypokalemia: replace IV and orally --hypomagnesemia: replace IV (pt reports that after last hospitalization she didn't fill Rx Mag) --telemetry Type 2 diabetes with peripheral neuropathy --Monitor blood sugars --Hold glimepiride and Januvia until we can be sure she's able to take in enough orally (she had n/v last night) Headache, history of migraine --Butler as needed. Patient takes his medication at home. --One-time dose of Toradol. Sepsis Assessment - Evaluation Sepsis screening result: No Definite Risk Hospital Course Summary Disclaimer: The visit summary below is not to be considered part of the above Progress Note. Hospital Course: 12/29/16 Assessment Severe sepsis secondary to left lower extremity cellulitis. Electrolyte abnormalities: Hypokalemia and hypomagnesemia, present on admission. Hyperbilirubinemia, present on admission. DM2 with peripheral neuropathy - hgb A1c 8.7% 11/11/16 HTN HLD HARDEEP OA Depression, anxiety PCOS, uterine cancer -status post hysterectomy Migraine CKD stage 1 Morbid obesity. Plan Patient was initially admitted to observation status, however, given results of testing, will change admission to inpatient for ongoing assessment and treatment of severe sepsis secondary to cellulitis. PCP: Dr. Bejarano. Severe sepsis secondary to cellulitis --Scores/labs supporting sepsis -SIRS: Positive for leukocytosis, fever, and respiratory rate of 20 -qSOFA: 0/3 -Severe sepsis qualifiers: Lactate of 2.0; Total bilirubin of 2.1. -Procalcitonin of 4.37 suggests bacterial etiology. Additionally, CRP of 142.7 indicates inflammatory process (levels >50 suggest sepsis). -Repeat Lactate within 6 hours; repeat procalcitonin tomorrow am to help guide abx therapy. --Start Vancomycin per pharmacy protocol. --Obtain venous Doppler of left lower extremity to rule out DVT. Electrolyte abnormalities --Hypokalemia: replace IV and orally --hypomagnesemia: replace IV (pt reports that after last hospitalization she didn't fill Rx Mag) --telemetry Type 2 diabetes with peripheral neuropathy --Monitor blood sugars --Hold glimepiride and Januvia until we can be sure she's able to take in enough orally (she had n/v last night) Headache, history of migraine --Butler as needed. Patient takes his medication at home. --One-time dose of Toradol. HTN, HLD, Depression, Anxiety --Continue home medications. <Melo Solomon - Last Filed: 12/29/16 19:53> History of Present Illness Date: 12/29/16 [facility] Patient Stated Medical History Migraine Yes Peripheral Neuropathy Yes Hypertension Yes Sleep Apnea Yes Diabetes Mellitus Type 2 Yes Hx Renal Disease No Osteoarthritis Yes Cellulitis Yes: THIS ADMITION Depression Yes Polycystic Ovarian Syndrome Yes Exam Vital Signs: Temperature 100.4 F 12/29/16 15:46 Pulse Rate 84 12/29/16 15:46 Respiratory Rate 20 12/29/16 15:46 Blood Pressure 145/69 H 12/29/16 15:46 Pulse Oximetry 99 12/29/16 15:46 Oxygen Delivery Method Room Air Height: 1.73 m Weight: 183.9 kg Results - Labs CBC & Chem 7: 12/29/16 15:20 Microbiology Results: Microbiology 12/29/16 15:20 Peripheral/Iv Start Blood Culture - Preliminary Culture Initiated - Results Pending 12/29/16 15:20 Peripheral/Iv Start Blood Culture - Preliminary Culture Initiated - Results Pending Assessment and Plan (1) Severe sepsis Current visit: Yes Status: Acute (2) Cellulitis Current visit: Yes Status: Acute (3) Electrolyte abnormality Current visit: Yes Status: Acute (4) Hyperbilirubinemia Current visit: Yes Status: Acute Assessment and Plan: Assessment Severe sepsis secondary to left lower extremity cellulitis. Electrolyte abnormalities: Hypokalemia and hypomagnesemia, present on admission. Hyperbilirubinemia, present on admission. DM2 with peripheral neuropathy - hgb A1c 8.7% 11/11/16 HTN HLD HARDEEP OA Depression, anxiety PCOS, uterine cancer -status post hysterectomy Migraine CKD stage 1 Morbid obesity - BMI 61.6. Have independently interviewed and examined pt. Chart reviewed. 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 Care plan developed with my supervision; agree with above. Woke up this morning feeling miserable-frontal SULTANA, nausea with dry heavies, terribly chilled. Contacted PCP who advised urgent ED evaluation. Pt too weak to get up and out. Still feeling pretty rough this am. Seen in clinic. BP not decreased and not tachycardic. Lab done revealing leukocytosis with WBC 20K and elevated CRP. Hospitalization arranged. With the nausea, she has not had any diarrhea. Was on antibiotics in October for cellulitis, but none since that course completed. Not having increased cough or congestion. No urinary pain. No increase sinus pressure, but some drainage this am. No ear congestion or pain. Lungs: decreased, no crackles, wheezes or distress CV: regular AB: soft nt/nd BS present EXT: left lower leg is more diffusely red and warm to touch as compared to right. MSE: awake alert appropriate. Thoughts linear. Converses well. Plan: Due to findings of severe sepsis will have admission status be inpatient. Vancomycin for coverage. IVF for support. Lovenox for DVT prevention, initially planned SCD but given LLE cellulitis Lovenox likely to be more comfortable for patient. Sono leg to exclude DVT. Monitor sugars. Replace Magnesium and potassium. Hospital Course Summary Disclaimer: The visit summary below is not to be considered part of the above Progress Note.
[2016-12-29 18:09] VITALS: BMI 61.6
[2016-12-29] MEDS ORDERED: KETOROLAC 15 MG/ML INJECTION IVP ONE (18:31)
[2016-12-29] MEDS ORDERED: OMEPRAZOLE 20 MG CAPSULE PO PRN (19:01)
[2016-12-29] MEDS ORDERED: MAGNESIUM OXIDE 400 MG TABLET PO SCH (19:15)
[2016-12-29] MEDS: NS 1,000 ML IV SCH ×2 (20:46→22:17)
[2016-12-29] MEDS: ENOXAPARIN 40 MG/0.4 ML INJECTION SQ SCH (21:09)
[2016-12-29] MEDS: ATORVASTATIN 40 MG TABLET PO SCH (22:23)
[2016-12-30] MEDS: SALINE FLUSH 10ml SYRINGE IVF PRN ×3 (04:33→11:04)
[2016-12-30] MEDS: NS 1,000 ML IV SCH (04:54)
[2016-12-30] MEDS: LEVOTHYROXINE 112 MCG TABLET PO SCH (06:44)
[2016-12-30] MEDS: 1/2 NS with KCL 20mEq 1,000 ML IV SCH (06:44)
[2016-12-30] MEDS: MELATONIN 5 MG TABLET PO SCH ×2 (06:48→22:03)
--- NOTE | 2016-12-30 08:14 | Pharmacy Consult-Antibiotics ---
Pharmacy Consult-Vancomycin - Laboratory Information WBC 9.3 T/MM3 (4.5-11.0) D 12/30/16 04:32 BUN 15.0 MG/DL (7-17) 12/30/16 04:32 Creatinine 1.0 MG/DL (0.7-1.2) 12/30/16 04:32 Procalcitonin 3.59 NG/ML H* 12/30/16 04:32 - Consult Information VANCOMYCIN CONSULT: Dx: Cellulitis Current Renal Fx: SCr = 1.0mg/dl. Will give Vancomycin 1,500mg IV q8hrs. Will continue to monitor and adjust regimen to maintain therapeutic levels. Thank you.
[2016-12-30] MEDS: HYDROCODONE/APAP 5mg/325mg TABLET PO PRN ×2 (08:47→19:40)
[2016-12-30] MEDS: PREGABALIN 150 MG CAPSULE PO SCH (08:57)
[2016-12-30] MEDS: ENOXAPARIN 40 MG/0.4 ML INJECTION SQ SCH (08:57)
[2016-12-30] MEDS: MAGNESIUM OXIDE 400 MG TABLET PO SCH ×2 (08:58→22:03)
--- NOTE | 2016-12-30 09:10 | Progress Note ---
<ShellySaundra Anthony - Last Filed: 12/30/16 12:45> Subjective: Kely complains of a global headache, now she thinks its developing into a migraine b/c lights are starting to bother her. She has no appetite, either, which is unusual. Her leg started to look more red overnight. She feels like she 's struggling to breathe a bit - she feels like there's something caught in her throat each time she takes a deep breath. She has a mild cough, which she thinks is from sinus drainage. Objective Vital signs: Temperature 98.8 F 12/30/16 07:32 Pulse Rate 91 12/30/16 07:32 Respiratory Rate 24 12/30/16 07:32 Blood Pressure 127/59 12/30/16 07:32 Pulse Oximetry 95 12/30/16 07:32 Oxygen Delivery Method Room Air Weight: 186.4 kg - Constitutional Present: mild distress, well nourished, well developed, morbidly obese - Routine HEENT Exam Eye: Present: PERRL. Absent: conjunctival icterus, scleral injection ENT: Present: mucous membranes dry, oropharynx clear - Routine Respiratory Exam Present: decreased breath sounds, CTA bilaterally - Routine Cardiovascular Exam Present: RRR, S1, S2 - Routine Abdominal Exam Present: soft, normoactive bowel sounds, non distended, non tender - Routine Extremities Exam Present: pulses intact. Absent: calf tenderness - Routine Back/Spine/Pelvis Exam Back/Spine: Absent: vertebral tenderness - Routine Musculoskeletal Exam Musculoskeletal: Present: no clubbing or cyanosis, limited range of motion ( secondary to body habitus) - Routine Skin Exam Present: dry, warm, rash (erythema to LLE has extended proximally and is now past the knee) - Routine Neurological Exam Present: alert, oriented X3 - Routine Psychiatric Exam Present: normal affect, normal thought process Results - Labs CBC & Chem 7: 12/30/16 04:32 12/30/16 04:32 Microbiology Results: Microbiology 12/29/16 15:20 Peripheral/Iv Start Gram Stain - Final 12/29/16 15:20 Peripheral/Iv Start Blood Culture - Preliminary Streptococcus species 12/29/16 15:20 Peripheral/Iv Start Gram Stain - Final 12/29/16 15:20 Peripheral/Iv Start Blood Culture - Preliminary Streptococcus species Assessment and Plan (1) Cellulitis Current visit: Yes Status: Acute (2) Severe sepsis Current visit: Yes Status: Acute (3) Electrolyte abnormality Current visit: Yes Status: Acute (4) Hyperbilirubinemia Current visit: Yes Status: Acute DVT Prophylaxis: Lovenox Resuscitation Status: Full Code Assessment and Plan: Assessment Severe sepsis secondary to left lower extremity cellulitis & bacteremia - Vanco started 12/29/16. Electrolyte abnormalities: Hypokalemia and hypomagnesemia, present on admission. Hyperbilirubinemia, present on admission. Thrombocytopenia, not present on admission. Mild normocytic anemia DM2 with peripheral neuropathy - hgb A1c 8.7% 11/11/16 HTN HLD HARDEEP OA Depression, anxiety PCOS, uterine cancer -status post hysterectomy Migraine CKD stage 1 Morbid obesity - BMI 61.6. PLAN Continue Vancomycin day #2 per pharmacy protocol. Prelim BC growing strep species. I've asked her RN to jose angel the cellulitis, since it has expanded proximally compared to yesterday. Consult ID since this is her 2nd admission since October with cellulitis and now with bacteremia. WBC down to normal; lactate trending down. PCT also improving on Vanco. Thrombocytopenia - PLT 108 - repeat CBC in am. If PLT continues to decline may need to stop Lovenox. Mild drop in hgb - suspect dilutional. Monitor. Sono was negative for DVT but did show large Sun's cyst. K and mg continue to be low - increase oral K and give add'l mag IV bolus. Headache - c/o muscular tightness; will try Norflex x1 and continue [place]. Start Flonase d/t nasal drainage. Repeat CMP (f/u on elev. bili) and CRP in am. Sepsis Assessment - Evaluation Sepsis screening result: No Definite Risk Hospital Course Summary Disclaimer: The visit summary below is not to be considered part of the above Progress Note. Hospital Course: 12/29/16 - ADMIT Severe sepsis secondary to left lower extremity cellulitis. Electrolyte abnormalities: Hypokalemia and hypomagnesemia, present on admission. Hyperbilirubinemia, present on admission. DM2 with peripheral neuropathy - hgb A1c 8.7% 11/11/16 HTN HLD HARDEEP OA Depression, anxiety PCOS, uterine cancer -status post hysterectomy Migraine CKD stage 1 Morbid obesity. Plan Patient was initially admitted to observation status, however, given results of testing, will change admission to inpatient for ongoing assessment and treatment of severe sepsis secondary to cellulitis. PCP: Dr. Bejarano. Severe sepsis secondary to cellulitis --Scores/labs supporting sepsis -SIRS: Positive for leukocytosis, fever, and respiratory rate of 20 -qSOFA: 0/3 -Severe sepsis qualifiers: Lactate of 2.0; Total bilirubin of 2.1. -Procalcitonin of 4.37 suggests bacterial etiology. Additionally, CRP of 142.7 indicates inflammatory process (levels >50 suggest sepsis). -Repeat Lactate within 6 hours; repeat procalcitonin tomorrow am to help guide abx therapy. --Start Vancomycin per pharmacy protocol. --Obtain venous Doppler of left lower extremity to rule out DVT. Electrolyte abnormalities --Hypokalemia: replace IV and orally --hypomagnesemia: replace IV (pt reports that after last hospitalization she didn't fill Rx Mag) --telemetry Type 2 diabetes with peripheral neuropathy --Monitor blood sugars --Hold glimepiride and Januvia until we can be sure she's able to take in enough orally (she had n/v last night) Headache, history of migraine --[place] as needed. Patient takes his medication at home. --One-time dose of Toradol. HTN, HLD, Depression, Anxiety --Continue home medications. 12/30/16 Continue Vancomycin day #2 per pharmacy protocol. Prelim BC growing strep species. I've asked her RN to jose angel the cellulitis, since it has expanded proximally compared to yesterday. Consult ID since this is her 2nd admission since October with cellulitis and now with bacteremia. WBC down to normal; lactate trending down. PCT also improving on Vanco. Thrombocytopenia - PLT 108 Sono was negative for DVT but did show large Sun's cyst. K and mg continue to be low - increase oral K and give add'l mag IV bolus. Headache - c/o muscular tightness; will try Norflex x1 and continue [place]. Start Flonase d/t nasal drainage. <Claudine Mart - Last Filed: 12/30/16 19:13> Objective Vital signs: Temperature 97.0 F 12/30/16 15:33 Pulse Rate 80 12/30/16 16:00 Respiratory Rate 20 12/30/16 15:33 Blood Pressure 102/61 12/30/16 15:33 Pulse Oximetry 98 12/30/16 15:33 Oxygen Delivery Method Room Air Results - Labs CBC & Chem 7: 12/30/16 04:32 12/30/16 04:32 Microbiology Results: Microbiology 12/29/16 15:20 Peripheral/Iv Start Gram Stain - Final 12/29/16 15:20 Peripheral/Iv Start Blood Culture - Preliminary Streptococcus species 12/29/16 15:20 Peripheral/Iv Start Gram Stain - Final 12/29/16 15:20 Peripheral/Iv Start Blood Culture - Preliminary Streptococcus species Assessment and Plan (1) Cellulitis Problem details: LLE, blood cultures positive for strep species Current visit : Yes Status: Acute (2) Severe sepsis Current visit: Yes Status: Acute (3) Electrolyte abnormality Current visit: Yes Status: Acute (4) Hyperbilirubinemia Current visit: Yes Status: Acute Assessment and Plan: I have independently evaluated and examined this patient. I reviewed the chart, the patient's history, and the LICENSING DIRECTOR/PA's documented findings as above. We discussed and formulated the assessment and plan as above with additions as below: Kely reports increased erythema overnight which may be a little better this afternoon. She's had no further fever today. She otherwise feels okay and reports that she has not been using CPAP recently because her home equipment is broken. There is moderate erythema of the left leg involving the medial greater than lateral aspects, irregular border. Slightly warm. Respirations nonlabored, good airflow but breath sounds diminished throughout. Bilateral lower extremity edema/lymphedema. Telemetry reviewed-consistently sinus rhythm. Discontinue. Repeat blood cultures in a.m. Final identification of streps species and sensitivities pending-penicillin allergic, can likely treat with clindamycin. Thrombocytopenia has progressed over the past couple of months-will review outpatient records. Hospital Course Summary Disclaimer: The visit summary below is not to be considered part of the above Progress Note.
--- NOTE | 2016-12-30 09:12 | Ultrasound Report ---
Indication: left leg swelling PROCEDURE: US venous doppler LE LT: Encounter: Initial Comparison: 11/04/2016 Findings: Multiple transverse and longitudinal Doppler and color flow and spectral pulsed Doppler ultrasound images of the deep venous system of the left lower extremity were obtained and show normal spontaneous, augmentable and compressible flow throughout the popliteal, superficial and common femoral veins. There is a nonpathologically enlarged lymph node in the left inguinal region. There is a Sun's cyst in the popliteal fossa measuring 10.1 x 7.2 x 8.5 cm. There are no abnormal filling defects or other findings to indicate the presence of significant deep venous thrombosis. IMPRESSION: Fairly large Bakers cyst in the medial popliteal fossa. No Doppler evidence of left lower extremity deep venous thrombosis. Preliminary report was provided by Levi miller .
[2016-12-30] MEDS ORDERED: ORPHENADRINE 60 MG/2 ML INJECTION IV ONE (09:18)
[2016-12-30] MEDS: MAGNESIUM SULFATE 1gm PREMIX 1 GM/100 ML BAG IV SCH ×2 (10:59→12:37)
[2016-12-30] MEDS: FLUTICASONE NASAL SPRAY 50mcg EA NOSTRIL SCH (11:00)
--- NOTE | 2016-12-30 13:33 | XRay Report ---
Indication: Fever/Leukocytosis PROCEDURE: XR chest 2V: Encounter: Initial Comparison: 09/11/2015 Findings: Heart size is normal. The lungs are clear. There is no focal opacity to suggest atelectasis or pneumonia. No mediastinal or hilar adenopathy. No pleural effusion. There is no significant tortuosity of the descending thoracic aorta. There is no significant degenerative changes of the thoracic spine. IMPRESSION: No acute process. .
[2016-12-30] MEDS ORDERED: FALL RISK - PHARMACY CONSULT MC PRN (17:44)
[2016-12-30] MEDS: ATORVASTATIN 40 MG TABLET PO SCH (22:02)
[2016-12-31] MEDS: LEVOTHYROXINE 112 MCG TABLET PO SCH (05:58)
[2016-12-31] MEDS: HYDROCODONE/APAP 5mg/325mg TABLET PO PRN ×3 (06:04→23:35)
[2016-12-31] MEDS: ENOXAPARIN 40 MG/0.4 ML INJECTION SQ SCH (08:31)
[2016-12-31] MEDS: PREGABALIN 150 MG CAPSULE PO SCH (08:32)
[2016-12-31] MEDS: MAGNESIUM OXIDE 400 MG TABLET PO SCH ×2 (08:32→21:23)
[2016-12-31] MEDS: FLUTICASONE NASAL SPRAY 50mcg EA NOSTRIL SCH (08:32)
--- NOTE | 2016-12-31 10:49 | Progress Note ---
<ShellySaundra D - Last Filed: 12/31/16 10:46> Subjective: Kely is feeling better today. She still has a mild headache, but not as bad as yesterday. She states the Norflex helped quite a bit in relieving her pain yesterday. She rested well last night. She is pleased to hear that her labs overall, are showing improvement. She denies any shortness of breath. Objective Vital signs: Temperature 97.2 F 12/31/16 07:42 Pulse Rate 80 12/31/16 08:00 Respiratory Rate 20 12/31/16 07:42 Blood Pressure 140/78 H 12/31/16 07:42 Pulse Oximetry 94 12/31/16 07:42 Oxygen Delivery Method Room Air Weight: 185.8 kg - Constitutional Present: no acute distress, well nourished, well developed, obese - Routine HEENT Exam Eye: Absent: conjunctival icterus, scleral injection ENT: Present: mucous membranes moist, oropharynx clear - Routine Respiratory Exam Present: wheezes (minimal expiratory, cleared as she continues take deep breaths ) - Routine Cardiovascular Exam Present: RRR, S1, S2 - Routine Abdominal Exam Present: soft, normoactive bowel sounds, non tender - Routine Extremities Exam Present: edema - Routine Skin Exam Present: intact, erythema (erythematous left lower extremity is fading and cellulitis is receding.), dry, warm - Routine Neurological Exam Present: alert, oriented X3 - Routine Psychiatric Exam Present: normal affect, normal thought process, cooperative Results - Labs CBC & Chem 7: 12/31/16 04:59 12/31/16 04:59 Microbiology Results: Microbiology 12/29/16 15:20 Peripheral/Iv Start Gram Stain - Final 12/29/16 15:20 Peripheral/Iv Start Blood Culture - Preliminary Streptococcus species 12/29/16 15:20 Peripheral/Iv Start Gram Stain - Final 12/29/16 15:20 Peripheral/Iv Start Blood Culture - Preliminary Streptococcus species Assessment and Plan (1) Cellulitis Problem details: LLE, blood cultures positive for strep species Current visit : Yes Status: Acute (2) Severe sepsis Current visit: Yes Status: Acute (3) Electrolyte abnormality Current visit: Yes Status: Acute (4) Hyperbilirubinemia Current visit: Yes Status: Acute (5) Bacteremia Current visit: Yes Status: Acute Resuscitation Status: Full Code Assessment and Plan: ASSESSMENT Severe sepsis secondary to left lower extremity cellulitis. Electrolyte abnormalities: Hypokalemia and hypomagnesemia, present on admission. Hyperbilirubinemia, present on admission. DM2 with peripheral neuropathy - hgb A1c 8.7% 11/11/16 HTN HLD HARDEEP OA Depression, anxiety PCOS, uterine cancer -status post hysterectomy Migraine CKD stage 1 Morbid obesity. PLAN Continue Vancomycin day #3 per pharmacy protocol. BC growing strep species. Dr. Brown has been consulted. WBC normal at 5.0; lactate trending down. PCT also improving on Vanco, down to 2.16. However, CRP increased to 268. Repeat CRP on 01/02. Hyperbilirubinemia, improved. Thrombocytopenia - PLT, decreased from yesterday, down to 94. DC Lovenox. If continues to worsen, consider heme/onc consultation. Magnesium has been corrected, potassium only slightly low at 3.5. We'll continue with oral replacement. Headache -improving, will have Flexeril available PRN in addition to [place] PRN. . Sepsis Assessment - Evaluation Sepsis screening result: No Definite Risk Hospital Course Summary Disclaimer: The visit summary below is not to be considered part of the above Progress Note. Hospital Course: 12/29/16 - ADMIT Severe sepsis secondary to left lower extremity cellulitis. Electrolyte abnormalities: Hypokalemia and hypomagnesemia, present on admission. Hyperbilirubinemia, present on admission. DM2 with peripheral neuropathy - hgb A1c 8.7% 11/11/16 HTN HLD HARDEEP OA Depression, anxiety PCOS, uterine cancer -status post hysterectomy Migraine CKD stage 1 Morbid obesity. Plan Patient was initially admitted to observation status, however, given results of testing, will change admission to inpatient for ongoing assessment and treatment of severe sepsis secondary to cellulitis. PCP: Dr. Bejarano. Severe sepsis secondary to cellulitis --Scores/labs supporting sepsis -SIRS: Positive for leukocytosis, fever, and respiratory rate of 20 -qSOFA: 0/3 -Severe sepsis qualifiers: Lactate of 2.0; Total bilirubin of 2.1. -Procalcitonin of 4.37 suggests bacterial etiology. Additionally, CRP of 142.7 indicates inflammatory process (levels >50 suggest sepsis). -Repeat Lactate within 6 hours; repeat procalcitonin tomorrow am to help guide abx therapy. --Start Vancomycin per pharmacy protocol. --Obtain venous Doppler of left lower extremity to rule out DVT. Electrolyte abnormalities --Hypokalemia: replace IV and orally --hypomagnesemia: replace IV (pt reports that after last hospitalization she didn't fill Rx Mag) --telemetry Type 2 diabetes with peripheral neuropathy --Monitor blood sugars --Hold glimepiride and Januvia until we can be sure she's able to take in enough orally (she had n/v last night) Headache, history of migraine --[place] as needed. Patient takes his medication at home. --One-time dose of Toradol. HTN, HLD, Depression, Anxiety --Continue home medications. 12/30/16 Continue Vancomycin day #2 per pharmacy protocol. Prelim BC growing strep species. Consult ID since this is her 2nd admission since October with cellulitis and now with bacteremia. WBC down to normal; lactate trending down. PCT also improving on Vanco. Thrombocytopenia - PLT 108 Sono was negative for DVT but did show large Sun's cyst. K and mg continue to be low - increase oral K and give add'l mag IV bolus. Headache - c/o muscular tightness; will try Norflex x1 and continue [place]. Start Flonase d/t nasal drainage. Telemetry reviewed-consistently sinus rhythm 12/31/16 Continue Vancomycin day #3. BC growing strep species. WBC normal at 5.0; lactate trending down. PCT also improving on Vanco, down to 2.16. However, CRP increased to 268. Repeat CRP on 01/02. Hyperbilirubinemia, improved. Thrombocytopenia - PLT 94. DC Lovenox. Magnesium has been corrected, potassium only slightly low at 3.5. Headache -improving, will have Flexeril available PRN in addition to [place] PRN. <Claudine Mart - Last Filed: 12/31/16 18:08> Objective Vital signs: Temperature 97.5 F 12/31/16 15:00 Pulse Rate 90 12/31/16 15:00 Respiratory Rate 24 12/31/16 15:00 Blood Pressure 136/77 12/31/16 15:00 Pulse Oximetry 91 12/31/16 15:00 Oxygen Delivery Method Room Air Results - Labs CBC & Chem 7: 12/31/16 04:59 12/31/16 04:59 Microbiology Results: Microbiology 12/29/16 15:20 Peripheral/Iv Start Gram Stain - Final 12/29/16 15:20 Peripheral/Iv Start Blood Culture - Preliminary Group G Streptococcus 12/29/16 15:20 Peripheral/Iv Start Gram Stain - Final 12/29/16 15:20 Peripheral/Iv Start Blood Culture - Preliminary Streptococcus species Assessment and Plan (1) Cellulitis Problem details: LLE, blood cultures positive for strep species Current visit : Yes Status: Acute (2) Severe sepsis Current visit: Yes Status: Acute (3) Electrolyte abnormality Current visit: Yes Status: Acute (4) Hyperbilirubinemia Current visit: Yes Status: Acute (5) Bacteremia Current visit: Yes Status: Acute Assessment and Plan: I have independently evaluated and examined this patient. I reviewed the chart, the patient's history, and the TENNIS COACH/PA's documented findings as above. We discussed and formulated the assessment and plan as above with additions as below: Kely reports that her left leg is not as red today and there is no pain. She is having some minor headache and stiff neck which she attributes to sleeping position. Respirations are nonlabored and air flow is good with clear lungs. There is faint erythema in the previously marked area of the left calf and prince with residual warmth to palpation. Improved from yesterday. Discussed with Dr. Brown; strep bacteremia-species not yet identified, sensitivities pending. Converted from vancomycin to cefazolin IV. Please add thrombocytopenia to problem list-outpatient records reviewed, no interval platelet count since last admission and [facility] but plt ct. Was 203 in August 2015 dropping to 169 in May 2016 per outpatient records. Discussed with Dr. Brown, outpatient records reviewed, current laboratory data reviewed. Hospital Course Summary Disclaimer: The visit summary below is not to be considered part of the above Progress Note.
[2016-12-31] MEDS: CYCLOBENZAPRINE 10 MG TABLET PO PRN (11:32)
--- NOTE | 2016-12-31 12:47 | Pharmacy Consult-Antibiotics ---
Pharmacy Consult-Vancomycin - Laboratory Information WBC 5.0 T/MM3 (4.5-11.0) D 12/31/16 04:59 BUN 12.0 MG/DL (7-17) 12/31/16 04:59 Creatinine 0.9 MG/DL (0.7-1.2) 12/31/16 04:59 Procalcitonin 2.16 NG/ML H* 12/31/16 04:59 Vancomycin Trough 19.53 UG/ML (15-20) 12/31/16 04:59 VANCOMYCIN CONSULT: Vancomycin Trough = 19.53 mcg/ml. Today's Serum Creatinine = 0.9 mg/dl. Estimated Creatinine Clearance > 120 mL/ min. I will continue the Vancomycin 1,500 mg IV every eight hours, because the procalcitonin is still elevated at 2.16 ng/mL. The pharmacy will continue to monitor the vancomycin troughs and renal function, and will adjust the vancomycin as needed. Thank you for the vancomycin protocol, Segundo Ledezma RPh.
[2016-12-31] MEDS: SALINE FLUSH 10ml SYRINGE IVF PRN ×3 (15:05→23:51)
--- NOTE | 2016-12-31 15:49 | Infectious Disease Consult ---
Infectious Disease Consult Date of Consultation: 12/31/16 Requesting Physician: Claudine Mart Reason for Consultation: antibiotic recs History of Present Illness: Ms. German is a 56 y/o woman with a h/o LLE cellulitis a few months ago. She reports that she waited several days before coming to the hospital that time, and there was redness along her lateral LLE and L lateral hip. She was treated with Vancomycin. She did not have bacteremia at that time. She was admitted here on 12/29 with sepsis secondary to LLE cellulitis. She reports the rather sudden onset of fever and shaking chills, and she was found to have a WBC of 20K. She had fever on admission. She also reports that she had nausea, dry heaves, headache and noted redness and some tenderness LLE. She was started on Vancomycin. Blood cultures drawn on admission are both positive for Strep species, that has been identified as Group G Strep. She is feeling a little better. Venous doppler was negative for DVT. CXR was negative. Her lactate was normal, but he procalcitonin has been high. Medications Home Medications Medication Instructions Recorded Confirmed Type Atorvastatin Calcium 40 mg PO HS #0 tab 09/26/15 12/29/16 History Hydrocodone/Acetaminophen 1 - 2 tab PO Q6H PRN #90 09/26/15 12/29/16 History [Hydrocodon-Acetaminophen 5-325] Levothyroxine Sodium 112 mcg PO ACB #90 09/26/15 12/29/16 History Losartan/Hydrochlorothiazide 1 tab PO DAILY #90 09/26/15 12/29/16 History [Losartan-Hctz 100-25 mg Tab] Multivit-Minerals/Folic/Ginkgo 1 tab PO DAILY #1 09/26/15 12/29/16 History [One Daily For Women 50+ Adv Tb] Omeprazole 20 mg PO BID PRN #120 09/26/15 12/29/16 History Sitagliptin Phosphate [Januvia] 100 mg PO HS #90 09/26/15 12/29/16 History Venlafaxine HCl [Venlafaxine HCl 150 mg PO DAILY #90 09/26/15 12/29/16 History ER] Aspirin/Acetaminophen/Caffeine 1 tab PO Q6H PRN 11/10/16 12/29/16 History [Headache Relief Tablet] Clobetasol 0.05% Cream [TEMOVATE 1 applic TOP 4XDPRN PRN 11/10/16 12/29/16 History Cream] Melatonin/Pyridoxine HCl (B6) 5 mg PO HS 11/10/16 12/29/16 History [Melatonin 5 mg Tablet] Naproxen Sodium [Aleve] 220 mg PO BID PRN 11/10/16 12/29/16 History Ondansetron HCl [Zofran] 4 mg PO Q6H PRN 11/10/16 12/29/16 History Pregabalin Cap [Lyrica] 150 mg PO DAILY 11/10/16 12/29/16 History Vit A/C/E AC/Znox/Cupric Oxide 1 tab PO DAILY 11/10/16 12/29/16 History [Eye Vitamin-Minerals Tablet] Glimepiride 1 mg PO DAILY 12/29/16 12/29/16 History Potassium Chloride ER Tab [K-Dur] 1 tab PO BID 12/29/16 12/29/16 History Allergies Allergy/AdvReac Type Severity Reaction Status Date / Time metformin Allergy Unknown ITCHING Verified 12/29/16 17:20 Penicillins Allergy Unknown HIVES Verified 12/29/16 17:20 PFSH Patient Stated Medical History Migraine Yes Peripheral Neuropathy Yes Hypertension Yes Sleep Apnea Yes Diabetes Mellitus Type 2 Yes Hx Renal Disease No Osteoarthritis Yes Cellulitis Yes: THIS ADMITION Depression Yes Polycystic Ovarian Syndrome Yes Surgical History: Left CTR 09/21/15. Colonoscopy 12/13/13 - normal 10 year screen. Hysterectomy - total [place] [address] Marin. Tonsillectomy age 4 or 6 Family History: Father of a stroke (arterial laceration) at age 39. Mother still living, has HTN, HLD, CAD - Social History Smoking status: Never smoker Substance use type: does not use Alcohol intake frequency: does not drink Household members: spouse Review of Systems - Constitutional Constitutional: Present: anorexia, chills, fever(s), headache(s) - EENMT Eyes: Absent: change in vision Mouth/Throat: Present: scratchy throat - Cardiovascular Cardiovascular: Absent: chest pain Vascular: Present: unilateral swelling (L>R) - Respiratory Respiratory: Present: cough, dyspnea - Gastrointestinal Gastrointestinal: Absent: abdominal pain, diarrhea, nausea, vomiting - Genitourinary Genitourinary: Absent: dysuria - Musculoskeletal Musculoskeletal: Present: arthralgias (knee arthritis). Absent: joint swelling - Integumentary/Breasts Integumentary: Present: erythema (LLE), lesions (on legs, says blisters) - Neurological Neurological: Present: headache(s). Absent: focal weakness - Endocrine Endocrine: Absent: palpitations Exam Vital Signs: Temperature 97.2 F 12/31/16 07:42 Pulse Rate 80 12/31/16 08:00 Respiratory Rate 20 12/31/16 07:42 Blood Pressure 140/78 H 12/31/16 07:42 Pulse Oximetry 94 12/31/16 07:42 Oxygen Delivery Method Room Air Height: 1.73 m Weight: 185.8 kg Body Mass Index: 61.6 - Constitutional Present: well nourished, well developed - Routine HEENT Exam Head: Present: normocephalic, atraumatic Eye: Present: EOMI, PERRL ENT: Present: mucous membranes moist - Routine Neck Exam Present: supple - Routine Respiratory Exam Present: CTA bilaterally. Absent: accessory muscle use, wheezes - Routine Cardiovascular Exam Present: RRR. Absent: murmur - Routine Abdominal Exam Present: soft (obese), normoactive bowel sounds, non distended. Absent: tenderness - Routine Extremities Exam Present: edema (LLE is larger than RLE, trace to 1+ edema LLE). Absent: palpable cord, joint swelling - Routine Skin Exam Present: erythema (LLE near ankle involving lower leg), lesions (scabbed lesions LLE, no open wounds or drainage). Absent: rash - Routine Neurological Exam Present: alert, oriented X3, CN II-XII intact Results - Labs CBC & Chem 7: 12/31/16 04:59 12/31/16 04:59 Microbiology Results: Microbiology 12/29/16 15:20 Peripheral/Iv Start Gram Stain - Final 12/29/16 15:20 Peripheral/Iv Start Blood Culture - Preliminary Group G Streptococcus 12/29/16 15:20 Peripheral/Iv Start Gram Stain - Final 12/29/16 15:20 Peripheral/Iv Start Blood Culture - Preliminary Streptococcus species Impression: Sepsis secondary to LLE cellulitis. Septicemia with Group G Strep H/o LLE cellulitis DM2 with peripheral neuropathy, not IR HARDEEP Depression, anxiety PCOS, uterine cancer -status post hysterectomy Migraines CKD stage 1 Morbid obesity PCN allergy (rash) Recommendation: I recommend trying a cephalosporin. She is agreeable. If she tolerates Ancef, then she could be transitioned to po cephalexin on discharge (500mg po QID to complete a 14 day course). She will need to complete 14 days for the septicemia. I would prefer not to use clindamycin since it's bacteriostatic. She might need chronic prophylactic antibiotics to prevent recurrences, which could be done with either cephalexin or clindamycin. Sepsis Assessment - Evaluation Sepsis screening result: No Definite Risk
[2016-12-31] MEDS: CEFAZOLIN 2 G in NS 100 ML IV SCH ×2 (17:12→23:35)
[2016-12-31] MEDS: MELATONIN 5 MG TABLET PO SCH (21:23)
[2016-12-31] MEDS: ATORVASTATIN 40 MG TABLET PO SCH (21:23)
[2017-01-01] MEDS: SALINE FLUSH 10ml SYRINGE IVF PRN ×3 (04:09→16:44)
[2017-01-01] MEDS: LEVOTHYROXINE 112 MCG TABLET PO SCH (06:17)
[2017-01-01] MEDS: MAGNESIUM OXIDE 400 MG TABLET PO SCH ×2 (08:50→21:14)
[2017-01-01] MEDS: HYDROCODONE/APAP 5mg/325mg TABLET PO PRN (08:51)
[2017-01-01] MEDS: PREGABALIN 150 MG CAPSULE PO SCH (08:51)
[2017-01-01] MEDS: FLUTICASONE NASAL SPRAY 50mcg EA NOSTRIL SCH (08:51)
[2017-01-01] MEDS: CYCLOBENZAPRINE 10 MG TABLET PO PRN (08:51)
[2017-01-01] MEDS: CEFAZOLIN 2 G in NS 100 ML IV SCH ×2 (08:55→16:44)
[2017-01-01] MEDS ORDERED: ACETAMINOPHEN 500 MG TABLET PO PRN (14:11)
[2017-01-01] MEDS ORDERED: ALBUTEROL 2.5mg/3ml (0.083%) NEB AEROSOL PRN (14:14)
--- NOTE | 2017-01-01 14:20 | Progress Note ---
<Juanita Andrade - Last Filed: 01/01/17 14:16> Subjective: Kely is seen today in follow up. She is alert, pleasant. Admits to ongoing headaches, minimal relief with Lortab. Does feel that the muscle relaxers helped some. She does appear mildly dyspneic at rest, and admits to feeling a bit SOA today. No chest pain. No other c/o. Chart is reviewed for collateral information. Objective Vital signs: Temperature 97 F 01/01/17 08:43 Pulse Rate 96 01/01/17 08:43 Respiratory Rate 20 01/01/17 08:43 Blood Pressure 152/80 H 01/01/17 08:43 Pulse Oximetry 90 01/01/17 08:43 Oxygen Delivery Method Room Air Weight: 184.5 kg - Constitutional Present: mild distress (Mildly SOA at rest. ), well nourished, well developed, morbidly obese, cooperative - Routine HEENT Exam Head: Present: atraumatic Eye: Present: EOMI, PERRL, normal accommodation ENT: Present: mucous membranes moist - Routine Respiratory Exam Present: dyspnea (Mild), decreased breath sounds. Absent: rales, respiratory distress, rhonchi, wheezes, crackles - Routine Cardiovascular Exam Present: RRR, S1, S2, no murmur - Routine Abdominal Exam Present: soft, normoactive bowel sounds, non distended, non tender - Routine Extremities Exam Present: edema Comments: Left LE mildly pink, chronic changes. No visible open area. - Routine Musculoskeletal Exam Musculoskeletal: Present: normal strength, moving extremities well - Routine Skin Exam Present: intact, dry, warm - Routine Neurological Exam Present: alert, oriented X3 - Routine Psychiatric Exam Present: normal affect, normal thought process, cooperative Results - Labs CBC & Chem 7: 01/01/17 04:07 01/01/17 04:07 Microbiology Results: Microbiology 12/29/16 15:20 Peripheral/Iv Start Gram Stain - Final 12/29/16 15:20 Peripheral/Iv Start Blood Culture - Preliminary Streptococcus species 12/31/16 17:36 Cath/Port/Line/Picc Blood Culture - Preliminary Culture Initiated - Results Pending 12/31/16 17:36 Peripheral/Iv Start Blood Culture - Preliminary Culture Initiated - Results Pending 12/29/16 15:20 Peripheral/Iv Start Gram Stain - Final 12/29/16 15:20 Peripheral/Iv Start Blood Culture - Preliminary Group G Streptococcus - Impressions reviewed. venous doppler is negative CTA 10/2016 Negative for PE Assessment and Plan (1) Cellulitis Problem details: LLE, blood cultures positive for strep species Current visit : Yes Status: Acute (2) Severe sepsis Current visit: Yes Status: Acute (3) Electrolyte abnormality Current visit: Yes Status: Acute (4) Hyperbilirubinemia Current visit: Yes Status: Acute (5) Bacteremia Current visit: Yes Status: Acute DVT Prophylaxis: SCD's (Add SCDs. No LMWH, Heparin due to low plts. ) GI Prophylaxis: other (Omeprazole) Resuscitation Status: Full Code Assessment and Plan: Assessment: Severe sepsis secondary to left lower extremity cellulitis, Group G Strep Bacteremia Electrolyte abnormalities: Hypokalemia and hypomagnesemia, present on admission. Hyperbilirubinemia, present on admission. DM2 with peripheral neuropathy - hgb A1c 8.7% 11/11/16 HTN HLD HARDEEP OA Depression, anxiety PCOS, uterine cancer -status post hysterectomy Migraine CKD stage 1 Morbid obesity, Severe BMI 61. Dyspnea Plan: 01/01/17 Infection: ID consulted. Vanco changed to Ancef. Continue supportive care. Inflammatory markers continue to improve. Repeat BC- NGTD. F/E/N: Continuing to replace potassium and magnesium. Repeat labs in AM. May need to decrease potassium dosing. DM2: BG is trending up. Resume Amaryl; Januvia. Dyspnea: Higher risk given BMI. Add O2 PRN. Recent CTA is negative. Add SCDs for now for DVT px. Doppler is negative. Avoid anticoagulant therapy due to low plts. HTN: BP is trending up. Monitor on current. If remains elevated, may need to diurese or add a second agent. Sepsis Assessment - Evaluation Sepsis screening result: No Definite Risk Hospital Course Summary Disclaimer: The visit summary below is not to be considered part of the above Progress Note. Hospital Course: 12/29/16 - ADMIT Severe sepsis secondary to left lower extremity cellulitis. Electrolyte abnormalities: Hypokalemia and hypomagnesemia, present on admission. Hyperbilirubinemia, present on admission. DM2 with peripheral neuropathy - hgb A1c 8.7% 11/11/16 HTN HLD HARDEEP OA Depression, anxiety PCOS, uterine cancer -status post hysterectomy Migraine CKD stage 1 Morbid obesity. Plan Patient was initially admitted to observation status, however, given results of testing, will change admission to inpatient for ongoing assessment and treatment of severe sepsis secondary to cellulitis. PCP: Dr. Bejarano. Severe sepsis secondary to cellulitis --Scores/labs supporting sepsis -SIRS: Positive for leukocytosis, fever, and respiratory rate of 20 -qSOFA: 0/3 -Severe sepsis qualifiers: Lactate of 2.0; Total bilirubin of 2.1. -Procalcitonin of 4.37 suggests bacterial etiology. Additionally, CRP of 142.7 indicates inflammatory process (levels >50 suggest sepsis). -Repeat Lactate within 6 hours; repeat procalcitonin tomorrow am to help guide abx therapy. --Start Vancomycin per pharmacy protocol. --Obtain venous Doppler of left lower extremity to rule out DVT. Electrolyte abnormalities --Hypokalemia: replace IV and orally --hypomagnesemia: replace IV (pt reports that after last hospitalization she didn't fill Rx Mag) --telemetry Type 2 diabetes with peripheral neuropathy --Monitor blood sugars --Hold glimepiride and Januvia until we can be sure she's able to take in enough orally (she had n/v last night) Headache, history of migraine --[place] as needed. Patient takes his medication at home. --One-time dose of Toradol. HTN, HLD, Depression, Anxiety --Continue home medications. 12/30/16 Continue Vancomycin day #2 per pharmacy protocol. Prelim BC growing strep species. Consult ID since this is her 2nd admission since October with cellulitis and now with bacteremia. WBC down to normal; lactate trending down. PCT also improving on Vanco. Thrombocytopenia - PLT 108 Sono was negative for DVT but did show large Sun's cyst. K and mg continue to be low - increase oral K and give add'l mag IV bolus. Headache - c/o muscular tightness; will try Norflex x1 and continue [place]. Start Flonase d/t nasal drainage. Telemetry reviewed-consistently sinus rhythm 12/31/16 Continue Vancomycin day #3. BC growing strep species. WBC normal at 5.0; lactate trending down. PCT also improving on Vanco, down to 2.16. However, CRP increased to 268. Repeat CRP on 01/02. Hyperbilirubinemia, improved. Thrombocytopenia - PLT 94. DC Lovenox. Magnesium has been corrected, potassium only slightly low at 3.5. Headache -improving, will have Flexeril available PRN in addition to [place] PRN. 01/01/17 14:28 Infection: ID consulted. Vanco changed to Ancef. Continue supportive care. Inflammatory markers continue to improve. Repeat BC- NGTD. F/E/N: Continuing to replace potassium and magnesium. Repeat labs in AM. May need to decrease potassium dosing. DM2: BG is trending up. Resume Amaryl; Januvia. Dyspnea: Higher risk given BMI. Add O2 PRN. Recent CTA is negative. Add SCDs for now for DVT px. Doppler is negative. Avoid anticoagulant therapy due to low plts. HTN: BP is trending up. Monitor on current. If remains elevated, may need to diurese or add a second agent. <Claudine Mart - Last Filed: 01/01/17 16:40> Objective Vital signs: Temperature 97 F 01/01/17 08:43 Pulse Rate 96 01/01/17 08:43 Respiratory Rate 20 01/01/17 08:43 Blood Pressure 152/80 H 01/01/17 08:43 Pulse Oximetry 90 01/01/17 08:43 Oxygen Delivery Method Room Air Results - Labs CBC & Chem 7: 01/01/17 04:07 01/01/17 04:07 Microbiology Results: Microbiology 12/29/16 15:20 Peripheral/Iv Start Gram Stain - Final 12/29/16 15:20 Peripheral/Iv Start Blood Culture - Preliminary Streptococcus species 12/31/16 17:36 Cath/Port/Line/Picc Blood Culture - Preliminary Culture Initiated - Results Pending 12/31/16 17:36 Peripheral/Iv Start Blood Culture - Preliminary Culture Initiated - Results Pending 12/29/16 15:20 Peripheral/Iv Start Gram Stain - Final 12/29/16 15:20 Peripheral/Iv Start Blood Culture - Preliminary Group G Streptococcus Assessment and Plan (1) Cellulitis Problem details: LLE, blood cultures positive for strep species Current visit : Yes Status: Acute (2) Severe sepsis Current visit: Yes Status: Acute (3) Electrolyte abnormality Current visit: Yes Status: Acute (4) Hyperbilirubinemia Current visit: Yes Status: Acute (5) Bacteremia Current visit: Yes Status: Acute Assessment and Plan: I have independently evaluated and examined this patient. I reviewed the chart, the patient's history, and the OPERATING ROOM SURGICAL TECHNICIAN/PA's documented findings as above. We discussed and formulated the assessment and plan as above with additions as below: Kely reports her leg is a little less red again today although last night she thought it was more erythematous than it had been earlier in the day and the erythema had spread to involve more of the prince been previously involved. She had sweats again last night without fever. She's noted dyspnea when she lays flat without pleuritic pain. Appetite is good and she denied nausea or vomiting but continues to have mild persistent headache. She's not been using CPAP at home in the recent past or since admission-problems with her home unit were reviewed. NAD, alert, fluent speech, moving all extremities well. Respirations nonlabored, decreased airflow, no focal findings Leg softer bilaterally although persistent edema; area of erythema left lower extremity unchanged although may be fading somewhat at the marked edges. Continue Ancef pending repeat blood cultures. Initiate nocturnal BiPAP-advised patient that I believe more effective nocturnal ventilation will help with chronic lower extremity edema and may help manage headaches. Platelet count stable, continue to monitor. Chest x-ray reviewed by myself-no infiltrate evident nor is there over volume overload. Discussed with respiratory therapy. Discussed with nursing-will resume SCDs, adapting to fit patient legs. Hospital Course Summary Disclaimer: The visit summary below is not to be considered part of the above Progress Note. Addendum entered and electronically signed by Juanita Andrade APRN 01/01/17 14:30 : Dyspnea- On lovenox until yesterday for DVT px. Assess CXR today, continue to monitor. Again, O2 PRN.
--- NOTE | 2017-01-01 17:40 | XRay Report ---
Indication: SOA PROCEDURE: XR chest 2V: Encounter: Subsequent Comparison: Two-view chest 12/29/2016 Findings: 2 views of the chest were acquired. There appears to be a reticulonodular pneumonic infiltrate involving the right perihilar and basal region. Perhaps a few acinar opacities suggesting a small component of airspace disease. Left lung clear. Heart unenlarged. No pleural fluid. Trachea midline. Hilar and mediastinal contours normal. Bony structures intact. IMPRESSION: Pneumonic infiltrate which appears to be reticulonodular involving the right lung. Atypical organisms should be considered. Close follow-up warranted. .
[2017-01-01] MEDS: MELATONIN 5 MG TABLET PO SCH (21:13)
[2017-01-01] MEDS: SITAGLIPTIN 100 MG TABLET PO SCH (21:13)
[2017-01-01] MEDS: ATORVASTATIN 40 MG TABLET PO SCH (21:15)
[2017-01-02] MEDS: CEFAZOLIN 2 G in NS 100 ML IV SCH ×4 (00:05→23:24)
[2017-01-02] MEDS: LEVOTHYROXINE 112 MCG TABLET PO SCH (05:53)
[2017-01-02] MEDS: GLIMEPIRIDE 1 MG TABLET PO SCH (08:12)
[2017-01-02] MEDS: FLUTICASONE NASAL SPRAY 50mcg EA NOSTRIL SCH (08:13)
[2017-01-02] MEDS: PREGABALIN 150 MG CAPSULE PO SCH (08:14)
[2017-01-02] MEDS: MAGNESIUM OXIDE 400 MG TABLET PO SCH ×2 (08:14→22:04)
[2017-01-02] MEDS: CYCLOBENZAPRINE 10 MG TABLET PO PRN ×2 (08:58→22:05)
[2017-01-02] MEDS: MAGNESIUM SULFATE 1gm PREMIX 1 GM/100 ML BAG IV SCH ×2 (11:20→12:57)
--- NOTE | 2017-01-02 12:10 | Progress Note ---
<ShellySaundra Anthony - Last Filed: 01/02/17 11:58> Subjective: Kely is feeling better. She describes an episode when she was in the bathroom, and states that her entire spine began to tremor. This resolved spontaneously, but she feels that taking an extra Flexeril was helpful in its resolution. She continues to feel weak, but this is improving. Her headache is markedly improved. She otherwise denies any complaints. She has been tolerating Ancef well without any reaction. Objective Vital signs: Temperature 97.5 F 01/02/17 08:00 Pulse Rate 77 01/02/17 08:00 Respiratory Rate 18 01/02/17 08:00 Blood Pressure 150/85 H 01/02/17 08:00 Pulse Oximetry 95 01/02/17 08:00 Oxygen Delivery Method Room Air Weight: 180.6 kg - Constitutional Present: no acute distress, well nourished, well developed, morbidly obese - Routine HEENT Exam Eye: Absent: conjunctival icterus, scleral injection ENT: Present: mucous membranes moist, oropharynx clear - Routine Respiratory Exam Present: CTA bilaterally - Routine Cardiovascular Exam Present: RRR, S1, S2 - Routine Abdominal Exam Present: soft, normoactive bowel sounds, non distended, non tender - Routine Extremities Exam Present: edema (bilateral). Absent: calf tenderness - Routine Musculoskeletal Exam Musculoskeletal: Absent: no erythema - Routine Skin Exam Present: intact, dry, warm Comments: Cellulitis to left lower extremity: Erythema is fading anteriorly, but looks slightly darker posteriorly. Overall, cellulitis is receding from skin markings. - Routine Neurological Exam Present: alert, oriented X3, CN II-XII intact - Routine Psychiatric Exam Present: normal affect, normal thought process Results - Labs CBC & Chem 7: 01/02/17 04:05 01/02/17 04:05 Microbiology Results: Microbiology 12/29/16 15:20 Peripheral/Iv Start Gram Stain - Final 12/29/16 15:20 Peripheral/Iv Start Blood Culture - Final Group G Streptococcus 12/29/16 15:20 Peripheral/Iv Start Gram Stain - Final 12/29/16 15:20 Peripheral/Iv Start Blood Culture - Final Group G Streptococcus 12/31/16 17:36 Cath/Port/Line/Picc Blood Culture - Preliminary No Growth After 1 Day 12/31/16 17:36 Peripheral/Iv Start Blood Culture - Preliminary No Growth After 1 Day Assessment and Plan (1) Cellulitis Problem details: LLE, blood cultures positive for strep species Current visit : Yes Status: Acute (2) Severe sepsis Current visit: Yes Status: Acute (3) Electrolyte abnormality Current visit: Yes Status: Acute (4) Hyperbilirubinemia Current visit: Yes Status: Acute (5) Bacteremia Current visit: Yes Status: Acute DVT Prophylaxis: SCD's Resuscitation Status: Full Code Assessment and Plan: ASSESSMENT Severe sepsis secondary to left lower extremity cellulitis, Strep G bacteremia. Vanco 12/29-12/31; Ancef started 12/31. Electrolyte abnormalities: Hypokalemia and hypomagnesemia, present on admission. Hyperbilirubinemia, present on admission. Thrombocytopenia, present on admission, improving. DM2 with peripheral neuropathy - hgb A1c 8.7% 11/11/16 HTN HLD HARDEEP -CPAP OA Depression, anxiety PCOS, uterine cancer -status post hysterectomy Migraine CKD stage 1 Morbid obesity PLAN Continue Ancef day #3 (Had vanco initially; today is day 5 of abx); repeat BC show no growth after 1 day. CRP actually has increased from 268 to 309. Potassium has stabilized, but magnesium is low again at 1.3. Will give IV replacement today. Oral magnesium increased to BID. Platelet counts are improving, up to 129K. White blood cell count, hemoglobin and platelets are either low-normal or low. May need further evaluation after acute illness has resolved. Headaches are improving. She takes [place] PRN at home - consider discontinuing this to prevent rebound migraines. Flexeril has been helpful. Sepsis Assessment - Evaluation Sepsis screening result: No Definite Risk Hospital Course Summary Disclaimer: The visit summary below is not to be considered part of the above Progress Note. Hospital Course: 12/29/16 - ADMIT Patient was initially admitted to observation status, however, given results of testing, will change admission to inpatient for ongoing assessment and treatment of severe sepsis secondary to cellulitis. PCP: Dr. Bejarano. Severe sepsis secondary to cellulitis --Start Vancomycin per pharmacy protocol. --Obtain venous Doppler of left lower extremity to rule out DVT - neg. Electrolyte abnormalities --Hypokalemia: replace IV and orally --hypomagnesemia: replace IV (pt reports that after last hospitalization she didn't fill Rx Mag) --telemetry Type 2 diabetes with peripheral neuropathy --Monitor blood sugars --Hold glimepiride and Januvia until we can be sure she' s able to take in enough orally (she had n/v last night) Headache, history of migraine --[place] as needed. Patient takes his medication at home. --One-time dose of Toradol - not helpful. HTN, HLD, Depression, Anxiety--Continue home medications. 12/30/16 Continue Vancomycin day #2 per pharmacy protocol. Prelim BC growing strep species. Consult ID since this is her 2nd admission since October with cellulitis and now with bacteremia. WBC down to normal; lactate trending down. PCT also improving on Vanco. Thrombocytopenia - PLT 108 Sono was negative for DVT but did show large Sun's cyst. K and mg continue to be low - increase oral K and give add'l mag IV bolus. Headache - c/o muscular tightness; will try Norflex x1 and continue [place]. Start Flonase d/t nasal drainage. Telemetry reviewed-consistently sinus rhythm 12/31/16 Continue Vancomycin day #3. BC growing strep species. WBC 5.0; lactate trending down. PCT down to 2.16. CRP increased to 268. Hyperbilirubinemia, improved. Thrombocytopenia - PLT 94. DC Lovenox. Magnesium corrected, potassium slightly low at 3.5. Headache -improving, will have Flexeril available PRN in addition to [place] PRN. 01/01/17 Infection: ID consulted. Vanco changed to Ancef. Inflammatory markers continue to improve. Repeat BC- NGTD. F/E/N: Continuing to replace potassium and magnesium. DM2: BG is trending up. Resume Amaryl; Januvia. 01/02/17 Continue Ancef day #3 (Had vanco initially; today is day 5 of abx); repeat BC show no growth after 1 day. CRP actually has increased from 268 to 309. Potassium has stabilized, but magnesium is low again at 1.3. Will give IV replacement today. Oral magnesium increased to BID. Platelet counts are improving, up to 129K. White blood cell count, hemoglobin and platelets are either low-normal or low. May need further evaluation after acute illness has resolved. Headaches are improving. She takes [place] PRN at home - consider discontinuing this to prevent rebound migraines. Flexeril has been helpful. <Brittny,Claudine L - Last Filed: 01/02/17 16:00> Objective Vital signs: Temperature 97.5 F 01/02/17 08:00 Pulse Rate 77 01/02/17 08:00 Respiratory Rate 18 01/02/17 08:00 Blood Pressure 150/85 H 01/02/17 08:00 Pulse Oximetry 95 01/02/17 08:00 Oxygen Delivery Method Room Air Results - Labs CBC & Chem 7: 01/02/17 04:05 01/02/17 04:05 Microbiology Results: Microbiology 12/29/16 15:20 Peripheral/Iv Start Gram Stain - Final 12/29/16 15:20 Peripheral/Iv Start Blood Culture - Final Group G Streptococcus 12/29/16 15:20 Peripheral/Iv Start Gram Stain - Final 12/29/16 15:20 Peripheral/Iv Start Blood Culture - Final Group G Streptococcus 12/31/16 17:36 Cath/Port/Line/Picc Blood Culture - Preliminary No Growth After 1 Day 12/31/16 17:36 Peripheral/Iv Start Blood Culture - Preliminary No Growth After 1 Day Assessment and Plan (1) Cellulitis Problem details: LLE, blood cultures positive for strep species Current visit : Yes Status: Acute (2) Severe sepsis Current visit: Yes Status: Acute (3) Electrolyte abnormality Current visit: Yes Status: Acute (4) Hyperbilirubinemia Current visit: Yes Status: Acute (5) Bacteremia Current visit: Yes Status: Acute Assessment and Plan: I have independently evaluated and examined this patient. I reviewed the chart, the patient's history, and the TRIMMING CASER/PA's documented findings as above. We discussed and formulated the assessment and plan as above with additions as below: Kely reports that she didn't sleep well last night due to trial of BiPAP but otherwise feels improved. Leg symptoms are better and she thinks swelling in her legs is significantly improved. She didn't have any sweats last night has not felt hot or chills today. No cough or nausea. Oropharynx without thrush Respirations nonlabored Minimal lower extremity edema, legs much softer than prior days Fading erythema in previously marked area of left lower extremity Magnesium replaced earlier IV and daily magnesium supplement increased. Repeat blood cultures negative to date. Hospital Course Summary Disclaimer: The visit summary below is not to be considered part of the above Progress Note.
[2017-01-02] MEDS: SITAGLIPTIN 100 MG TABLET PO SCH (22:04)
[2017-01-02] MEDS: MELATONIN 5 MG TABLET PO SCH (22:05)
[2017-01-02] MEDS: ATORVASTATIN 40 MG TABLET PO SCH (22:05)
[2017-01-02 23:52] VITALS: O2SAT 94
[2017-01-03] MEDS: LEVOTHYROXINE 112 MCG TABLET PO SCH (05:56)
[2017-01-03 08:02] VITALS: BP 150/90; PULSE 79; RESP 20; TEMP 96.2
[2017-01-03] MEDS: GLIMEPIRIDE 1 MG TABLET PO SCH (08:10)
[2017-01-03] MEDS: PREGABALIN 150 MG CAPSULE PO SCH (08:10)
[2017-01-03] MEDS: CEFAZOLIN 2 G in NS 100 ML IV SCH (08:11)
[2017-01-03] MEDS: MAGNESIUM OXIDE 400 MG TABLET PO SCH (08:11)
[2017-01-03] MEDS: FLUTICASONE NASAL SPRAY 50mcg EA NOSTRIL SCH (08:11)
--- NOTE | 2017-01-03 09:05 | Progress Note ---
Subjective Date: 01/03/17 Subjective: She is feeling better. She reports that the pain in her leg has improved. She denies any fevers or chills. She had several loose stools, but denies josh diarrhea. She is eating ok. Tolerating the Ancef without problems. Exam Vital Signs: Temperature 96.2 F L 01/03/17 07:47 Pulse Rate 79 01/03/17 07:47 Respiratory Rate 20 01/03/17 07:47 Blood Pressure 150/90 H 01/03/17 07:47 Pulse Oximetry 94 01/03/17 07:47 Oxygen Delivery Method Room Air Height: 1.73 m Weight: 175.8 kg Body Mass Index: 61.6 - Constitutional Present: no acute distress, well nourished, well developed, obese - Routine HEENT Exam Head: Present: normocephalic Eye: Present: EOMI ENT: Present: mucous membranes moist, dentition normal - Routine Neck Exam Present: supple - Routine Respiratory Exam Present: CTA bilaterally - Routine Cardiovascular Exam Present: RRR. Absent: murmur - Routine Abdominal Exam Present: soft, normoactive bowel sounds, non distended. Absent: tenderness - Routine Extremities Exam Present: edema (LLE, 1+) Comments: no significant tenderness LLE - Routine Skin Exam Absent: rash Comments: some mild erythema LLE medial calf area and lateral ankle area. It has faded since last week. She still has some scabbed lesions that appear to be healing excoriated lesions. - Routine Neurological Exam Present: alert, oriented X3, CN II-XII intact - Routine Psychiatric Exam Present: normal affect Results - Labs CBC & Chem 7: 01/03/17 04:38 01/03/17 04:38 Microbiology Results: Microbiology 12/31/16 17:36 Cath/Port/Line/Picc Blood Culture - Preliminary No Growth After 2 Days 12/31/16 17:36 Peripheral/Iv Start Blood Culture - Preliminary No Growth After 2 Days 12/29/16 15:20 Peripheral/Iv Start Gram Stain - Final 12/29/16 15:20 Peripheral/Iv Start Blood Culture - Final Group G Streptococcus 12/29/16 15:20 Peripheral/Iv Start Gram Stain - Final 12/29/16 15:20 Peripheral/Iv Start Blood Culture - Final Group G Streptococcus Impression: Sepsis secondary to LLE cellulitis. Septicemia with Group G Streptococcus. H/o LLE cellulitis DM2 with peripheral neuropathy, not IR HARDEEP Depression, anxiety PCOS, uterine cancer -status post hysterectomy Migraines CKD stage 1 Morbid obesity PCN allergy (rash) Loose stools, suspect secondary to ancef. Recommendation: Will change Ancef to po cephalexin 500mg po QID to complete a 14 day course. She will need to take antibiotics through 01/11/17. She might need chronic prophylactic antibiotics to prevent recurrences, which could be done with either cephalexin or clindamycin. I think she could be discharged home soon. I 'd be happy to see her in follow up. Sepsis Assessment - Evaluation Sepsis screening result: No Definite Risk
[2017-01-03] MEDS: MAGNESIUM SULFATE 1gm PREMIX 1 GM/100 ML BAG IV SCH ×2 (10:16→11:22)
[2017-01-03] MEDS: SALINE FLUSH 10ml SYRINGE IVF PRN (10:17)
--- NOTE | 2017-01-03 12:19 | Discharge Instructions ---
Discharge Plan - Med Rec/Dispo Referrals/Follow Up: Kristi Bejarano MD [Primary Care Provider] - 1 Week Rosa Brown MD [Physician] - (Call office to schedule, 2-3 weeks.) [place] Instructions: Cellulitis (GEN), Sepsis (GEN) Prescriptions: New CephALEXin [Keflex] 500 mg PO QID #40 capsule Cyclobenzaprine [Flexeril] 10 mg PO TID PRN #20 tablet PRN Reason: Muscle Spasm Hydrocodone/APAP 5/325 [[place] 5/325] 1 - 2 tab PO Q6H PRN tablet PRN Reason: Pain Magnesium Oxide [Magox] 800 mg PO BID #120 tablet Fluticasone Nasal [place] [Flonase] 2 spray EA NOSTRIL DAILY #1 bottle Continue Sitagliptin Phosphate [Januvia] 100 mg PO HS #90 Losartan/Hydrochlorothiazide [Losartan-Hctz 100-25 mg Tab] 1 tab PO DAILY #90 Venlafaxine HCl [Venlafaxine HCl ER] 150 mg PO DAILY #90 Atorvastatin Calcium 40 mg PO HS #0 tab Pregabalin Cap [Lyrica] 150 mg PO DAILY Vit A/C/E AC/Znox/Cupric Oxide [Eye Vitamin-Minerals Tablet] 1 tab PO DAILY Clobetasol 0.05% Cream [TEMOVATE Cream] 1 applic TOP 4XDPRN PRN PRN Reason: Dry Skin Melatonin/Pyridoxine HCl (B6) [Melatonin 5 mg Tablet] 5 mg PO HS Ondansetron HCl [Zofran] 4 mg PO Q6H PRN PRN Reason: Nausea Glimepiride 1 mg PO DAILY Omeprazole 20 mg PO BID PRN #120 PRN Reason: Acid Reflux Levothyroxine Sodium 112 mcg PO ACB #90 Multivit-Minerals/Folic/Ginkgo [One Daily For Women 50+ Adv Tb] 1 tab PO DAILY #1 Aspirin/Acetaminophen/Caffeine [Headache Relief Tablet] 1 tab PO Q6H PRN PRN Reason: Pain Naproxen Sodium [Aleve] 220 mg PO BID PRN PRN Reason: Pain Changed Potassium Chloride ER Tab [K-Dur] 1 tab PO TID #0 Discontinued Magnesium Oxide [Magox] 400 mg PO DAILY #30 No Action Hydrocodone/Acetaminophen [Hydrocodon-Acetaminophen 5-325] 1 - 2 tab PO Q6H PRN #90 PRN Reason: Pain Discharge Instructions/Outpatient Orders: Final Provider Discharge Instructions Location: Determined By Patient - Disposition 01 Discharged Home, Self-Care
--- NOTE | 2017-01-03 12:32 | Discharge Summary ---
<Saundra Bravo - Last Filed: 01/03/17 14:28> Discharge Information Date of admission: 12/29/16 18:53 Anticipated date of discharge: 01/03/17 Attending Physician: Claudine Mart MD Primary care physician: Kristi Bejarano MD Consults: Physician Consult: Rosa Brown - Discharge Diagnosis Discharge Diagnosis: Severe sepsis secondary to left lower extremity cellulitis, Strep G bacteremia Hypokalemia and hypomagnesemia, improved - Procedures Procedures: Midline placed to RUE on 12/29/16. Discontinued on 01/03/17. - Laboratory Labs: 01/03/17 04:38 01/03/17 04:38 - Microbiology Microbiology 12/31/16 17:36 Cath/Port/Line/Picc Blood Culture - Preliminary: No Growth After 2 Days 12/31/16 17:36 Peripheral/Iv Start Blood Culture - Preliminary: No Growth After 2 Days 12/29/16 15:20 Peripheral/Iv Start Blood Culture - Group G Streptococcus 12/29/16 15:20 Peripheral/Iv Start Blood Culture - Group G Streptococcus - Radiology Radiology: Venous Doppler left leg: Fairly large Sun's cyst, no DVT. Chest x-ray on 12/29/16 was negative for acute process. Repeat chest x-ray on 01/01 showed a pneumonic infiltrate. Chest x-ray on 01/03/17 showed resolution of infiltrate. History of Present Illness HPI: Kely German is a 56 y/o woman who developed a fever of 101.2 in the evening of [which was last night]. She also started to have some wheezing and became winded with activity - while she has had problems with dyspnea on exertion in the past, she has not ever had wheezing. She had quite a bit of nasal drainage which made her nauseated and she started to dry heave. She notes an impressive frontal headache. She has felt weak and lightheaded and unsteady on her feet - she had to use her cane to ambulate last night. She woke up early this morning chilling, which is very unusual since typically she's hot. She complains of chronic knee and ankle pain, but denies any worsening recently. No joint swelling or warmth. Denies rashes or cellulitis, but does state that she has been developing blisters to both anterior shins for "years", mostly to her left. Denies abdominal pain, diarrhea, or constipation. No burning with urination or blood in urine. Denies recent vision changes. She notes some dental pain to her left lower jaw, but it is improving. She denies any recent travel. No known sick exposures. She has 2 dogs and 2 cats at home - all are up to date on vaccines. She was admitted this October for hip cellulitis, and her symptoms last night were very similar to when she was hospitalized then. She was seen in Dr. Bejarano's office, where labs were drawn. WBC was high at 20 and CRP was markedly elevated at 142.7. UA was negative for UTI. Dr. Solomon was contacted and Kely was directly admitted to observation status for further workup and treatment. Objective Vital signs: Temperature 96.2 F L 01/03/17 07:47 Pulse Rate 79 01/03/17 07:47 Respiratory Rate 20 01/03/17 07:47 Blood Pressure 150/90 H 01/03/17 07:47 Pulse Oximetry 94 01/03/17 07:47 Oxygen Delivery Method Room Air Weight: 176.6 kg - Constitutional Present: no acute distress, well nourished, well developed, obese - Routine HEENT Exam ENT: Present: mucous membranes moist, oropharynx clear - Routine Respiratory Exam Present: CTA bilaterally - Routine Cardiovascular Exam Present: RRR, S1, S2 - Routine Abdominal Exam Present: soft, non distended, non tender - Routine Extremities Exam Present: edema (b/l) - Routine Musculoskeletal Exam Musculoskeletal: Present: moving extremities well - Routine Skin Exam Present: intact, erythema (fading to LLE), dry, warm - Routine Neurological Exam Present: alert, oriented X3 - Routine Psychiatric Exam Present: normal affect, normal thought process, cooperative Hospital Course This is a general summary of the patient's hospital course. For more details refer to the complete medical record. Hospital course: 12/29/16 - ADMIT 01/03/17 - DISCHARGED HOME Severe sepsis secondary to Group G strep bacteremia & LLE cellulitis --Started Vancomycin on admission; after Dr. Brown saw antibiotics were changed to Ancef on 01/01/17. --Venous Doppler of left lower extremity to rule out DVT - neg (pos for large Sun's cyst). --Repeat BC remained negative on discharge. Elevated bilirubin trended down and was 0.9 on day of DC. --Developed thrombocytopenia and Lovenox was discontinued. This resolved by day of DC. --CXR #2 showed a pneumonic infiltrate. CXR on day of DC was clear. --DC home on Keflex 500 mg QID through 01/11/17 to complete 2 week course of abx. --F/U with Dr. Brown in the next 2-3 weeks - considering prophylactic abx. Electrolyte abnormalities --Hypokalemia & hypomagnesemia: replaced IV and orally --K was corrected but mag continues to be slightly low (1.4). Rx for mag provided; instructed pt to increase frequency of KDur to TID. Type 2 diabetes with peripheral neuropathy --Hyperglycemic --Held glimepiride and Januvia initially but we were able to resume diabetic meds on 01/01/17. Headache, history of migraine --Patient takes [place] at home PRN - consider stopping this medication to prevent rebound migraines. --One-time dose of Toradol - not helpful. --Flexeril helped discomfort, and Rx was provided. New Rx and Rx changes: --Keflex 500 mg QID --Flexeril 10 mg TID PRN --MagOx 800 mg BID --Flonase 2 sprays daily F/U --Dr. Bejarano in 1 week --Dr. Brown in 2-3 weeks/consider prophylactic abx to prevent recurrences Time spent with patient: discharge greater than 30 minutes Discharge Plan - Med Rec/Dispo Referrals/Follow Up: Kristi Bejarano MD [Primary Care Provider] - 1 Week (01/12/17 at 2:00pm) Rosa Brown MD [Physician] - (01/18/2017 at 1:40pm. ) [place] Instructions: Cellulitis (GEN), Sepsis (GEN) Prescriptions: New CephALEXin [Keflex] 500 mg PO QID #40 capsule Cyclobenzaprine [Flexeril] 10 mg PO TID PRN #20 tablet PRN Reason: Muscle Spasm Hydrocodone/APAP 5/325 [[place] 5/325] 1 - 2 tab PO Q6H PRN tablet PRN Reason: Pain Magnesium Oxide [Magox] 800 mg PO BID #120 tablet Fluticasone Nasal [place] [Flonase] 2 spray EA NOSTRIL DAILY #1 bottle Continue Sitagliptin Phosphate [Januvia] 100 mg PO HS #90 Losartan/Hydrochlorothiazide [Losartan-Hctz 100-25 mg Tab] 1 tab PO DAILY #90 Venlafaxine HCl [Venlafaxine HCl ER] 150 mg PO DAILY #90 Atorvastatin Calcium 40 mg PO HS #0 tab Pregabalin Cap [Lyrica] 150 mg PO DAILY Vit A/C/E AC/Znox/Cupric Oxide [Eye Vitamin-Minerals Tablet] 1 tab PO DAILY Clobetasol 0.05% Cream [TEMOVATE Cream] 1 applic TOP 4XDPRN PRN PRN Reason: Dry Skin Melatonin/Pyridoxine HCl (B6) [Melatonin 5 mg Tablet] 5 mg PO HS Ondansetron HCl [Zofran] 4 mg PO Q6H PRN PRN Reason: Nausea Glimepiride 1 mg PO DAILY Omeprazole 20 mg PO BID PRN #120 PRN Reason: Acid Reflux Levothyroxine Sodium 112 mcg PO ACB #90 Multivit-Minerals/Folic/Ginkgo [One Daily For Women 50+ Adv Tb] 1 tab PO DAILY #1 Aspirin/Acetaminophen/Caffeine [Headache Relief Tablet] 1 tab PO Q6H PRN PRN Reason: Pain Naproxen Sodium [Aleve] 220 mg PO BID PRN PRN Reason: Pain Changed Potassium Chloride ER Tab [K-Dur] 1 tab PO TID #0 Discontinued Magnesium Oxide [Magox] 400 mg PO DAILY #30 No Action Hydrocodone/Acetaminophen [Hydrocodon-Acetaminophen 5-325] 1 - 2 tab PO Q6H PRN #90 PRN Reason: Pain Discharge Instructions/Outpatient Orders: Final Provider Discharge Instructions Location: Determined By Patient - Disposition 01 Discharged Home, Self-Care <Claudine Mart - Last Filed: 01/03/17 19:40> Discharge Information Date of admission: 12/29/16 18:53 Attending Physician: Claudine Mart MD Primary care physician: Kristi Bejarano MD Consults: 12/30/16 12:53 Physician Consult [CONS] Routine Consulting Provider: Rosa Brown Reason For Exam: cellulitis and bacteremia Ordering Provider has Notified Braid Cutter: No - Laboratory Labs: 01/03/17 04:38 01/03/17 04:38 - Microbiology Microbiology 12/31/16 17:36 Cath/Port/Line/Picc Blood Culture - Preliminary No Growth After 3 Days 12/31/16 17:36 Peripheral/Iv Start Blood Culture - Preliminary No Growth After 3 Days 12/29/16 15:20 Peripheral/Iv Start Gram Stain - Final 12/29/16 15:20 Peripheral/Iv Start Blood Culture - Final Group G Streptococcus 12/29/16 15:20 Peripheral/Iv Start Gram Stain - Final 12/29/16 15:20 Peripheral/Iv Start Blood Culture - Final Group G Streptococcus Objective Vital signs: Temperature 96.2 F L 01/03/17 07:47 Pulse Rate 79 01/03/17 07:47 Respiratory Rate 20 01/03/17 07:47 Blood Pressure 150/90 H 01/03/17 07:47 Pulse Oximetry 94 01/03/17 07:47 Oxygen Delivery Method Room Air Hospital Course This is a general summary of the patient's hospital course. For more details refer to the complete medical record. Hospital course: I have independently evaluated and examined this patient. I reviewed the chart, the patient's history, and the HEARINGS REPORTER/PA's documented findings as above. We discussed and formulated the assessment and plan as above with additions as below: Kely reported that she feels fine today. Edema in her legs has improved significantly and erythema is notably improved in the past 2 days. She has had some dionte-rectal burning/discomfort which is improved with A&D Ointment. Respirations are nonlabored with clear breath sounds. Examination of her left lower extremity demonstrates the calf to be soft and erythema to be virtually resolved. 2 g of IV magnesium sulfate were given prior to discharge due to persistent hypomagnesemia. Given difficulty maintaining both magnesium and potassium with oral supplementation consideration may be given to discontinuing hydrochlorothiazide and use of an alternate antihypertensive in conjunction with losartan. Stable for discharge with follow-up plans as noted.
--- NOTE | 2017-01-03 14:15 | XRay Report ---
INDICATION: follow-up pneumonic infiltrate PROCEDURE: CHEST 2-VIEWS UPRIGHT (PA & LAT) Encounter: Initial COMPARISON: January 01, 2017 FINDINGS: Prior right sided airspace disease has either resolved or significantly improved. Lungs now appear clear. There is no pleural effusion or pneumothorax. The heart size, mediastinal contours and pulmonary vascularity are within normal limits. There is no significant skeletal abnormality. IMPRESSION: No acute cardiopulmonary disease. .
== END 2017-01-03 14:50 | disposition home or self-care (01) | DRG 872 ==
LOC: MED
PROVIDERS: ADMIT Hospitalist; ATTEND Internal Medicine